=== PATIENT | female | born 1945 | race Caucasian/White ===

== ENCOUNTER 2017-03-03 11:32 | Inpatient (IN) | payer MEDICARE, MEDICAID ==
[~2017-03-03] VITALS: Ht 160 cm; Wt 58.8 kg
[2017-03-03] VITALS (7 sets, daily range): BP systolic 111–134; BP diastolic 80–92; PULSE 84–105; RESP 14–26; O2SAT 87–94
[~2017-03-03 11:32] MED LIST: ALBU8.5H4 IH; BECL8.7A6 IH; FERR-83 PO; FUR20 PO; HYDR-3825 PO; IPRA3AMP IH; OLAN20TA3 PO; OLAN5TAB PO; OMEP-113 PO; OXCA300T2 PO; POTA10CA42 PO; PRAM0.5T3 PO; RNT300T PO; TEMA7.5C14 PO; TIOT18CA3 IH; TOPI-59 PO; ZOV800 PO
--- NOTE | 2017-03-03 12:15 | ED.REPORT ---
HPI-Dyspnea / Wheezing Date of Service Mar 03, 2017 ED Provider: Yumiko Raghavendra Patient is a 71 year old female with a hx of COPD and hyperlipidemia who presents to the ED after being referred by Dr. Talavera complaining of increasing SOB. She is unable to breathe without her Bipap machine and still feels short of breath with it. Associated symptoms include rib pain, chest pain, back pain, and diaphoresis. She denies fever, vomiting, or any other symptoms. She has been on Bipap since the 18 of February and is supposed to be on it as needed. Her pulmonary doctor recently titrated off of oral steroids to inhaled steroids. Has not having fevers but has been having night sweats recently. Presented to her primary care doctor's office tachypneic, dyspneic, tachycardic with an 88% saturation. Has had a nonproductive cough. Nursing Notes Stated Complaint: SHORT OF BREATH Chief Complaint: Respiratory Distress Nursing Notes Reviewed: Yes Allergies: Coded Allergies: Penicillins (Verified Allergy, Unknown, FLUSH HOT & reddened skin, ) Scheduled Beclomethasone Dipropionate (Qvar) 8.7 Gm Aer.w.adap 2 PUFFS IH BID Ferrous Sulfate (Ferrous Sulfate) 325 Mg Tablet 325 MG PO DAILY Furosemide (Furosemide) 20 Mg Tab 40 MG PO DAILY Olanzapine (Olanzapine) 5 Mg Tablet 5 MG PO HS every am and at bedtime Olanzapine (Zyprexa) 20 Mg Tablet 20 MG PO HS Omeprazole Magnesium (Omeprazole) 20 Mg Capsule.dr 20 MG PO BID Oxcarbazepine (Oxcarbazepine) 300 Mg Tablet 600 MG PO QAM Oxcarbazepine (Oxcarbazepine) 300 Mg Tablet 900 MG PO HS Potassium Chloride (Potassium Chloride) 10 Meq Capsule.er 10 MEQ PO NOON TAKE WITH FOOD Ranitidine (Zantac) 300 Mg Tab 300 MG PO HS Temazepam (Temazepam) 7.5 Mg Capsule 7.5 MG PO HS Tiotropium [place] (Spiriva) 18 Mcg Cap.w.dev 18 MCG IH DAILY Topiramate (Topiramate) 25 Mg Tablet 25 MG PO DAILY Scheduled PRN Acyclovir (Acyclovir) 800 Mg Tab 800 MG PO BID PRN PRN outbreak Albuterol HFA (Albuterol HFA) 8.5 Gm Hfa.aer.ad 2 PUFF IH QID PRN PRN For Shortness of Breath Hydrocodone-Acetaminophen 7.5-325 mg (Hydrocodone-Acetaminophen 7.5-325 mg) 1 Each Tablet 1-1.5 EACH PO Q6H PRN PRN For Pain Up to 4 in 24 hours Ipratropium/Albuterol Sulfate (Iprat-Albut 0.5-3(2.5) mg/3 mL Inhalant Soln) 3 Ml Ampul.neb 1 NEB IH Q6 PRN PRN For Shortness of Breath Pramipexole Dihydrochloride (Mirapex) 0.5 Mg Tablet 0.25-0.5 MG PO HS PRN PRN For Restlessness General Time Seen by MD: 12:14 Chief Complaint Shortness of breath Hx Obtained From: Patient, Primary care provider Arrived By: Walk-in Sudden in Onset?: No Onset Occurred: Onset unknown Symptom Duration: Since onset Recent Healthcare: Recent doctor visit Similar Sx Previous: Yes Past Medical History Past Medical History Per old reports 1. Chronic hypoxic hypercapnic respiratory failure, on 2 L/minute continuous home oxygen. 2. Chronic obstructive pulmonary disease. 3. Bipolar disorder. 4. Chronic pain, on narcotic analgesics. 5. Nicotine dependence, active with 1/2 pack cigarette smoking daily. 6. Osteoarthritis. 7. Restless leg syndrome. 8. Gastroesophageal reflux disease. 9. Dysphagia with significant tracheobronchial aspiration by barium swallow on August 31, 2014. 10. Hyperlipidemia 11. Depression 12. MAURICE 13. Degenerative arthritis - spine 14. pseudophakia 15. 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 Left knee arthroplasty due to lateral meniscal tear. 2. Decompressive laminectomy of C3-C6. 3. Left ankle surgery. 4. Hysterectomy. 5. Facial surgery in the remote past due to an accident. Reports: Hysterectomy Smoking History Former Smoker Social History Lives with demented Alcohol Use: Denies alcohol use Drug Use: THC Ambulatory Status Independent Review of Systems Review of Systems Note: +rib pain Constitutional: Denies: Fever Respiratory: Reports: Shortness of breath Cardiovascular: Reports: Chest pain Musculoskeletal: Reports: Back pain Skin: Reports Diaphoresis Complete sys rev & neg: except as marked. GI: Denies: Vomiting Physical Exam Initial Vital Signs Vital Signs (First) Date Time Temp Pulse Resp B/P Pulse Ox O2 Delivery O2 Flow Rate FiO2 03/03/17 11:37 36.4 105 20 129/81 92 BiPAP 2 Initial VS: Reviewed, Vital signs normal Head / Eyes: Atraumatic, Normocephalic Abdomen / GI: Soft, Non-tender Skin: Warm, Dry Neurologic: Alert, Oriented, Nonfocal Psychiatric: Mood/affect normal, Behavior normal, Normal thought content General/Constitutional: Awake, Alert Distress / Hydration: Positive: Distress moderate Neck: Full range of motion Respiratory / Chest: No wheezing lungs clear anteriorly, equal breath sounds, poor air movement On Bipap Cardiovascular: Heart rate NL, Regular rhythm, Heart sounds NL, No gallop, No murmurs, No rubs Interpretation & Diagnostics Lab Results Interpretation Result Diagram: 03/03/17 1200 03/03/17 1200 Test 03/03/17 12:00 03/03/17 13:09 White Blood Count 9.3th/mm3 (3.8-10.1) Red Blood Count 4.04mil/mm3 (3.90-5.20) Hemoglobin 12.7g/dL (12.0-15.6) Hematocrit 37.7% (35.0-46.0) Mean Corpuscular Volume 93.3fL (81-100) Mean Corpuscular Hemoglobin 31.4pg (27.0-35.0) Mean Corpuscular Hemoglobin Concent 33.7% (32.0-37.0) Red Cell Distribution Width 13.5% (12.3-15.4) Platelet Count 341bil/L (150-400) Neutrophils (%) (Auto) 72.4% (40-74) Lymphocytes (%) (Auto) 18.4% (14-46) Monocytes (%) (Auto) 7.5% (4-12) Eosinophils (%) (Auto) 1.2% (0-5) Basophils (%) (Auto) 0.2% (0-3) Sodium Level 135mEq/L (134-144) Potassium Level 4.6mEq/L (3.5-5.2) Chloride Level 97mEq/L (97-108) Carbon Dioxide Level 21mmol/L (18-29) Blood Urea Nitrogen 13mg/dL (8-27) Creatinine 0.40mg/dL (0.57-1.00) Estimat Glomerular Filtration Rate 225mL/min (>59) Glucose Level 109mg/dL (60-99) Calcium Level 10.0mg/dL (8.5-10.1) Magnesium Level 1.9mg/dL (1.6-2.6) Total Bilirubin 0.3mg/dL (0.0-1.2) Aspartate Amino Transf (AST/SGOT) 30U/L (0-50) Alanine Aminotransferase (ALT/SGPT) 23U/L (0-32) Alkaline Phosphatase 100U/L (25-165) Troponin T 0.010ug/L (0.0-0.011) Pro-B-Type Natriuretic Peptide < 0.010pg/mL (0-301) Total Protein 8.6g/dL (6.4-8.4) Albumin 4.3g/dL (3.4-5.0) D-Dimer 1.11mg/L FEU (<0.50) ECG Interpretation ECG Interpretation: Sinus rate 95 L axis deviation No actute Time: 13:16 Interpreted by: ED physician ABG Interpretation ABG Interpretation: ABG on trilogy with supplemental O2 chronic resp acidosis, she is chronically hypercapneic and not correcting on trilogy pH 7.337 pCO2 70 pO2 233 cHCO3- 37 cBase 1.1 Exam Performed by: Allied health pract Exam Interpreted by: ED physician X-Ray Chest Interpretation Chest Xray Interpretation: IMPRESSION: 1. Pulmonary emphysema. 2. Apparent vascular shunting to the upper lobes could reflect elevated pulmonary venous pressure but indeterminate. 3. Scar or atelectasis along the left major fissure is unchanged. 4. Increased density at the left base medially could represent a new area of pneumonia. Dictated by: Jeffry Xiong M.D. on 03/03/2017 at 13:15 Approved by: Jeffry Xiong M.D. on 03/03/2017 at 13:20 View: Portable, 1 view Interpretation / Wet Read by: Interpret - Radiologist Re-Eval/Medical Decision Med Decision/Clinical Course 71-year-old female with advanced COPD, increasing dyspnea and infiltrate on her chest x-ray. Given nebulized bronchodilators, prednisone 40 mg and Levaquin 750 mg IV. Elevated d-dimer noted, CT angiogram has been done, my initial review did not show pulmonary and was not, formal interpretation is pending. She will be admitted to hospitalist service. Consultation : Referral / Consult Name: Ana M Bob DO Consulted With: Hospitalist Hook Up: Accepts admit Note: Admit to night hospitalist. Discharge & Departure Impression: Primary Impression: Pneumonia Pneumonia type: due to unspecified organism Laterality: left Lung location : lower lobe of lung Qualified Code: J18.1 - Lobar pneumonia, unspecified organism Additional Impression: COPD exacerbation Disposition: ADMITTED TO HOSPITAL Discharge Condition All VS Reviewed: Yes Condition: Stable Referrals: Sandra Talavera MD (PCP) Scribe Attestation Portions of this note were transcribed by Kristal Mcgee. I, Dr. Calderon personally performed the history, physical exam and medical decision-making; I reviewed and confirmed the accuracy of the information in the transcribed note. Signed by: Kristal Mcgee 03/03/2017, 1503 copies to: Sandra Talavera MD, Donald L MD Mar 03, 2017 12:14 KRISTAL MCGEE Mar 03, 2017 12:35
[2017-03-03 12:52] LABS: BASOPHILS % (AUTO) 0.2 % (0-3); EOSINOPHILS % (AUTO) 1.2 % (0-5); MONOCYTES % (AUTO) 7.5 % (4-12); Mean Corpuscular Hemoglobin 31.4 pg (27.0-35.0); Mean Corpuscular Volume 93.3 fL (81-100); NEUTROPHILS % (AUTO) 72.4 % (40-74); Platelet Count 341 bil/L (150-400)
--- NOTE | 2017-03-03 12:56 | ABG ---
DateTimeAnalyzed 12:48:02 -_ pH ____7.386 - 7.350 7.450 pCO2 ___43.9__ -mmHg 35.0 45.0 pO2 ___74.8__ -mmHg 69.0 116 HCO3- ___26.3__ -mmol/L 22.0 26.0 ABE ____1.1__ -mmol/L tHb ___11.7__ -g/dL O2Hb ___94.2__ -% COHb ____1.4__ -% 1.5 MetHb ____0.2__ -% sO2 ___95.7__ -% FIO2 ___28.0__ -% Drawn By rs - Date/Time Notified____ 12:55:00 -_ Notified By rs - Notified Whom slack, don - K+ ____4.1__ -mmol/L tO2 ___15.6__ -Vol%
[2017-03-03 13:15] LABS: Magnesium 1.9 mg/dL (1.6-2.6)
--- NOTE | 2017-03-03 13:22 | DRSVH ---
PROCEDURE: X-RAY CHEST ONE VIEW, PORTABLE ([id number]) INDICATIONS: dyspnea TECHNIQUE: One view of the chest was acquired. COMPARISON: 01/09/2017 FINDINGS: Surgical changes and devices: None. Lungs and pleura: No pleural effusions or pneumothorax. Pulmonary hyperexpansion as before. [place] ear radiodensity in the left midlung field representing scar or thickening along the fissure, unchang ed. Upper lobe pulmonary vessels are increased. There is mild increased opacity above the left hemidi aphragm partially obscuring the cardiac apex. Mediastinum: Mediastinal contours appear normal. Heart size is normal. Bones and chest wall: No suspicious bony lesions. Overlying soft tissues appear unremarkable. IMPRESSION: 1. Pulmonary emphysema. 2. Apparent vascular shunting to the upper lobes could reflect elevated pulmonary venous pressure but indeterminate. 3. Scar or atelectasis along the left major fissure is unchanged. 4. Increased density at the left base medially could represent a new area of pneumonia. Dictated by: Jeffry Xiong M.D. on 03/03/2017 at 13:15 Approved by: Jeffry Xiong M.D. on 03/03/2017 at 13:20
[2017-03-03] MEDS ORDERED: levoFLOXacin Inj 750 MG in IV Premix 1 EACH IV ONE (17:30)
--- NOTE | 2017-03-03 17:30 | DRSVH ---
PROCEDURE: CT ANGIO CHEST PULMONARY EMBOLISM ([id number]) INDICATIONS: increasing dyspnea elevted dimer TECHNIQUE: After the administration of intravenous contrast, 2 mm thick sections acquired from the pulmonary api jose ramon to the posterior costophrenic angles. 3-dimensional maximum intensity projection (MIP) coronal a nd sagittal reformats were then acquired through the thorax. For radiation dose reduction, the follo wing was used: automated exposure control, adjustment of mA and/or kV according to patient size. COMPARISON: [facility], CT, CT ANGIO CHEST PE, 02/10/2017, 8:48. [facility], CT, CHEST ANGIO-PE, 12/02/2013, 15:45. [facility], CT, CHEST ANGIO-PE, 07/03/2011, 20:24 . FINDINGS: Image quality: Excellent. Pulmonary arteries: Pulmonary arteries are normal in size, and demonstrate no intraluminal filling d efects to suggest central pulmonary embolism. Lungs and pleura: Platelike subpleural density within the lateral aspect of the left upper lobe is pr esent, extending anteroinferiorly along the major fissure. Moderate emphysema with apical predominanc e is present. 5 mm diameter spiculated nodule within the right upper lobe anteriorly, which was not s een on the prior examination. No change in 6 mm diameter nodule within the left lower lobe anteriorly . No pleural effusions or pneumothorax. Central and peripheral airways are patent. Mediastinum: Heart size is normal, without pericardial effusion. There is calcification of the coron bryan vasculature. No mediastinal or hilar adenopathy. Thoracic aorta is normal in caliber and enhance ment. Esophagus is normal in caliber, without hiatal hernia. Bones and chest wall: No suspicious bony lesions. Ribs and thoracic spine appear intact throughout. Thyroid gland is within normal limits. No axillary or supraclavicular adenopathy. Abdomen: Visualized upper abdominal solid organs appear normal in the early arterial phase of enhanc ement. IMPRESSION: 1. No acute process. No pulmonary embolus. 2. Coronary artery disease. 3. Emphysema. 4. Bilateral lung nodules as described above; followup is recommended as below. 5. Presumed subpleural scarring within the left upper lobe laterally. Fleischner Society criteria for SOLID lung nodule followup. Nodule size (mm)Low-risk patientHigh-risk patient<6 (single or multiple)No routine followup.Optional CT at 12 months. 6-8 (single or multiple)CT at 6-12 months, then optional CT at 18-24 mo.CT at 6-12 m onths, then CT at 18-24 months. >8 (single)CT, PET-CT, or biopsy at 3 months. Same as for low-risk p ts. >8 (multiple)CT at 3-6 months, then optional CT at 18-24 mo.CT at 3-6 months, then CT at 18-24 m onths. Recommendations do not apply to lung cancer screening, patients with immunosuppression, or pa tients with known primary cancer. Dictated by: Dillon Olea M.D. on 03/03/2017 at 17:24 Approved by: Dillon Olea M.D. on 03/03/2017 at 17:28
[2017-03-03] MEDS ORDERED: predniSONE 20 mg Tablet PO ONE (17:35)
[2017-03-03] MEDS ORDERED: HYDROcodone-APAP 5-325 mg Tablet PO ONE (18:00)
[2017-03-03] MEDS ORDERED: 0.9% Sodium Chloride 1,000 ML IV ONE (18:10)
[2017-03-03] MEDS ORDERED: Alum-Mag Hydrox-Simeth 30 mL Suspension PO PRN (19:25)
[2017-03-03] MEDS ORDERED: Ondansetron 2 mg/mL 2 mL Inj IVPUSH PRN (19:25)
[2017-03-03] MEDS ORDERED: Polyethylene Glycol (PEG) 17 Gm Powder PO PRN (19:25)
--- NOTE | 2017-03-03 21:16 | PCM.HPMED ---
Subjective Date of Service Mar 03, 2017 Primary Provider: Admitting Physician: Alec Velasquez MD Primary Care Physician: Sandra Talavera MD Attending Physician: Alec Velasquez MD Chief Complaint: Shortness of breath History of Present Illness: Sandra Briggs is a 71-year-old woman with past medical history significant for COPD and is dependent on Trilogy, bipolar, MAURICE who presented to the [facility] emergency department today due to worsening shortness of breath. Patient initially contacted her primary care physician who directed her to the emergency department. Patient noted that she has been using her Trilogy [id number] and still feels quite short of breath with it. Patient is also complaining of chest pain and diaphoresis. Patient stated that her ribs and her abdomen and back started hurting since discharge using Trilogy although the pressure is making her tired. She is also completely dependent on the Trilogy since she got it and has not really been able to eat or drink that she is not able to tolerate really any time off of the BiPAP. She denies increase in production of sputum. She denies any sick contacts. Patient states that she has been having intermittent fevers in the last couple of hours. She also mentions several months worth of abdominal pain. She denies any constipation. In the emergency department her vital signs were notable for a pulse of 105 and an O2 saturation of 92% on BiPAP. ABG was performed which revealed patient to be in mild respiratory acidosis. A CT angiogram of chest was performed as well to rule out pulmonary embolism and it was negative. Patient was given nebulized bronchodilators, 40 mg of prednisone and 750 mg of IV Levaquin. Patient states that she does not feel any improvement from any interventions and still remains quite short of breath. She states that her dyspnea has really not changed at all becoming quite fatigued. Review of Systems: A comprehensive review of systems was conducted with the patient and found to be negative except as above in the History of Present Illness. Allergies Coded Allergies: Penicillins (Verified Allergy, Unknown, FLUSH HOT & reddened skin, ) Home Medications Sandra Briggs [id number] 1945 02/12/2017 01:30 PM 08/23 Start Date Medication Directions Stop Date 07/11/2016 acyclovir 800 mg tablet TAKE ONE TABLET BY MOUTH TWICE A DAY 201701/18/2016 Aerochamber MV spacer use with albuterol and azmanex inhalers 10/28/2016 ALBUTER/IPRATROP 2.5-0.5MG/3ML ... INHALANT INHALE CONTENTS OF 1 VIAL VIA NEBULIZER 4 TIMES DAILY 04/02/2016 albuterol sulfate HFA 90 mcg/actuation aerosol inhaler INHALE 2 PUFFS BY MOUTH 4 to 6 TIMES DAILY FOR ASTHMA WHEEZING 06/19/2016 Asmanex Twisthaler 220 mcg (60 doses) breath activated inhale 1 puff by inhalation route every 2 days 02/09/2017 Breo Ellipta 200 mcg-25 mcg/dose powder for inhalation inhale 1 puff by inhalation route every day at the same time each day 11/28/2016 bupropion HCl 75 mg tablet take 1 tablet by ORAL route 2 times every day after one week increase to twice daily 01/08/2017 CETIRIZINE TAB 10MG 300 NSTR@ 10 MG TABLET TAKE ONE TABLET BY MOUTH ONCE DAILY 08/02/2015 Ensure oral liquid One Ensure like product twice daily for underweight status 09/05/2016 Flovent HFA 220 mcg/actuation aerosol inhaler inhale 2 puff by inhalation route 2 times every day after albuterol with spacer 08/05/2016 FUROSEMIDE 20MG TABLET* TAKE 1-2 TABLETS BY MOUTH ONCE DAILY 01/21/2017 hydrocodone 7.5 mg-acetaminophen 325 mg tablet take 1 tablet by oral route every 6 hours as needed for pain. May take 1 extra tablet 4 days a month 03/01/2017 02/19/2017 hydrocodone 7.5 mg-acetaminophen 325 mg tablet take 1 tablet by oral route every 6 hours as needed for pain. May take 1 extra tablet 4 days a month 03/27/2017 07/14/2016 iron 325 mg (65 mg iron) tablet TAKE ONE TABLET BY MOUTH DAILY 11/18/2016 lorazepam 0.5 mg tablet take 0.5 - 1 tablet by oral route 2 times every day as needed for anxiety, may take at same time as temazepam 07/29/2013 melatonin 3 mg tablet One tablet at night 05/05/2016 METHOCARBAMOL 500MG TABLET TAKE ONE TABLET BY MOUTH 4 TIMES DAILY NEEDED FOR MUSCLE SPASM 04/01/2016 naproxen 250 mg tablet take 1 tablet by oral route 2 times every day as needed for joint pain 02/12/2017 NYSTATIN SUSP 100,000UNITS/ML 969869 POWDER/SUSPENSION TAKE 1 TEASPOONFUL BY MOUTH 4 TIMES DAILY 01/08/2017 OMEPRAZOLE 20MG CAPSULE TAKE ONE CAPSULE BY MOUTH TWICE A DAY 09/03/2016 oxcarbazepine 300 mg tablet TAKE TWO TABLETS BY MOUTH EVERY MORNING AND 4 TABS AT BEDTIME 08/19/2013 Oxygen 3 liter Nasal Use 3 liters by Nasal canulla with flair of lung disease at rest and with exertion. May decrease to 2 liters when flair resolved. 06/30/2016 PEG 3350 PWDR FOR SOLN MG POWDER/SUSPENSION USE 1 CAPFUL (17GM) MIXED WITH 8 OZ WATER OR JUICE ONCE DAILY FOR 3 DAYS THEN NEEDED 01/14/2017 POTASSIUM CL CAP 10MEQ ER CAPSULE TAKE ONE CAPSULE BY MOUTH ONCE DAILY WITH FOOD 02/11/2017 prednisone 20 mg tablet take 0.5 tablet by oral route every morning with breakfast for 2 weeks and then stop 08/05/2016 RANITIDINE 300MG TABLET TAKE ONE TABLET BY MOUTH DAILY AT BEDTIME 04/13/2015 selenium sulfide 2.5 % topical suspension Shampoo by topical route 2 times every week to the affected area(s), lather, leave for 10 minutes, then rinse off with water. 06/19/2016 Spiriva with HandiHaler 18 mcg and inhalation capsules INHALE 1 CAPSULE DAILY EVERY DAY 12/24/2016 temazepam 15 mg capsule take 1 capsule (15MG) by oral route every day at bedtime as needed, may repeat after 3 hours if needed. 08/05/2016 TOPIRAMATE TAB 25MG TABLET TAKE ONE TABLET BY MOUTH TWICE A DAY 12/03/2016 ZYPREXA 20MG TABLET TAKE ONE TABLET BY MOUTH ONCE DAILY AT BEDTIME 11/28/2016 Zyprexa 5 mg tablet take 1 tablet by oral route every morning continue 20mg tablet at night PMH Muscle spasm Arthritis Obstructive sleep apnea Degenerative arthritis of spine Pseudophakia Hypoxia Insomnia Spondylosis without myelopathy Astigmatism Venous retinal branch occlusion Hyperlipidemia COPD (chronic obstructive pulmonary disease) Bipolar 1 disorder Restless leg syndrome Chronic bronchitis Hearing loss in left ear Surgical History Arthroscopic subacromial decompression Hysterectomy Facial surgery Ankle surgery Family History Patient has 3 children all of whom have mental illness. Social History Hx Alcohol Use: No Hx Substance Use: Yes ("marijuana brownies", QUIT) Hx Tobacco Use: Yes (8 CIGARETTES A DAY) Smoking Status: Former Smoker (patient smoked for 50 years) Additional Information Patient's last December and she has lived alone since then. She has a biotechnologist that comes to visit her twice a week for 2 hours to clean. Otherwise she cares for herself. Exam Vital Signs Vital Sign - Last Date Time Temp Pulse Resp B/P Pulse Ox O2 Delivery O2 Flow Rate FiO2 03/03/17 15:14 92 26 111/92 94 BiPAP 2 03/03/17 11:37 36.4 Exam General: Frail elderly woman in a hospital bed. Does not appear in acute distress. Able to communicate through BiPAP mask. HEENT: Normocephalic, atraumatic. External ears without defect. Pupils equal, round, and reactive to light and accommodation. Anicteric sclerae, moist conjunctivae, and no lid lag. BiPAP mask on face. Neck: Supple with full range of motion. No jugular venous distension. No lymphadenopathy or thyromegaly. Cardiovascular: Regular rate and rhythm with no murmurs, rubs, or gallops appreciated Pulmonary: Diffuse crackles throughout. Increased work of breathing observed. Abdomen: Bowel tones present. Soft, mildly tender diffusely, distended. No hepatosplenomegaly or masses appreciated. Extremities: No clubbing, cyanosis, edema, or lymphadenopathy appreciated. Skin: Normal temperature, turgor, and texture; no rash, ulcers, or subcutaneous nodules appreciated. Neurological: Cranial nerves grossly intact. Normal muscle strength, tone, and bulk. Reflexes, coordination, and sensory function within normal limits. No known gait impairment. Psychiatric: Normal mood and affect. Alert and oriented to person, place, and time. Lab and Diagnostics Result Diagram: 03/03/17 1200 03/03/17 1200 X-Rays, CTs and MRIs X-RAY CHEST ONE VIEW, PORTABLE IMPRESSION: 1. Pulmonary emphysema. 2. Apparent vascular shunting to the upper lobes could reflect elevated pulmonary venous pressure but indeterminate. 3. Scar or atelectasis along the left major fissure is unchanged. 4. Increased density at the left base medially could represent a new area of pneumonia Dictated by: Jeffry Xiong M.D. on 03/03/2017 at 13:15 CT ANGIO CHEST PULMONARY EMBOLISM IMPRESSION: 1. No acute process. No pulmonary embolus. 2. Coronary artery disease. 3. Emphysema. 4. Bilateral lung nodules as described above; followup is recommended as below. 5. Presumed subpleural scarring within the left upper lobe laterally. Fleischner Society criteria for SOLID lung nodule followup. Nodule size (mm)Low-risk patientHigh-risk patient<6 (single or multiple)No routine followup.Optional CT at 12 months. 6-8 (single or multiple)CT at 6-12 months, then optional CT at 18-24 mo.CT at 6-12 months, then CT at 18-24 months. >8 (single)CT, PET-CT, or biopsy at 3 months. Same as for low-risk pts. >8 (multiple)CT at 3-6 months, then optional CT at 18-24 mo.CT at 3-6 months, then CT at 18-24 months. Recommendations do not apply to lung cancer screening, patients with immunosuppression, or patients with known primary cancer. Dictated by: Dillon Olea M.D. on 03/03/2017 at 17:24 Assessment & Plan Sandra Briggs is a 71-year-old woman with past medical history significant for COPD and is dependent on Trilogy, bipolar, MAURICE who presented to the [facility] emergency department today due to worsening shortness of breath. Acute on chronic hypoxemic hypercarbic respiratory failure secondary to severe COPD possible exacerbation, present on admission, active -Patient already has severe COPD at baseline. Since starring to use Trilogy the patient has been entirely dependent on it not really been able to eat or drink -We will treat for presumed COPD exacerbation although this really seems like the steady decline of end-stage COPD -Continue Trilogy -We will continue with empiric antibiotics. Will continue steroids. Will continue with DuoNeb, albuterol, steroid inhaler. -Respiratory viral PCR -Urine Legionella antigen, strep antigen -Blood cultures, sputum cultures -Consider palliative care consultation tomorrow morning Chronic issues, present on admission, stable: Bipolar disorder -Continue home medications Chronic pain -Continue home pain medications MAURICE -As above CODE STATUS: DNR/DNI Patient is admitted under inpatient status with expected length of stay greater than 2 midnights due to severity of presenting symptoms, risk of adverse event, and complexity of treatment plan. VTE Prophylaxis: Sub-Q Heparin (Unfractionated) Resuscitation Status: DNR/DNI:Do Not Resuscitate/Intubate Attending Statement The patient was seen and examined together with Dr. Bob on 03/03 and I agree with the history, exam and plan as outlined in the note above. Ana M Bob DO Mar 03, 2017 20:23 Alec Velasquez MD Mar 03, 2017 21:21
[2017-03-03] MEDS ORDERED: Albuterol 2.5 mg/3 mL Inhalation Solution NEB PRN (21:20)
[2017-03-03] MEDS: Albuterol-Ipratropium 3 mL Inhalation Solution NEB SCH (21:27)
[2017-03-03] MEDS: 0.9% Sodium Chloride 1,000 ML IV SCH (22:29)
[2017-03-03 23:12] LABS: APPEARANCE,URINE CLEAR (CLEAR,HAZY); COLOR,URINE YELLOW (YELLOW); OCCULT BLOOD,URINE TRACE (NEGATIVE); PH,URINE 6.4 (5.0-8.0); UROBILINOGEN,URINE NORMAL (NORMAL)
--- NOTE | 2017-03-03 23:30 | NUR ---
admit note/med rec pt admitted to room 3031 from ED around 2114 for dyspnea, COPD exacerbation and PNA. Pt is A&Ox4; able to ambulate in the room with moderate SOB. unable to finish a sentence w/o taking a breath. RR 20-24, desats to mid 80s on continuous use of Bipap/trilogy with 2L O2 bleed; resolves when resting in bed; SpO2 between 90%-94%. IVF infusing. Pt is oriented to room and plan of care; she verbalized understanding. Pt unable to recall her medications and dosages. will acquire a med list from PCP in AM. Addendum: 03/04/17 at 0603 by LITA BENSON RN continues to desaturate and have dyspnea with activity; resolved when resting in bed. Hydrocodone/APAP given per pt's request for generalized pain with good relief. pt slept most of the night. able to make needs known.
[2017-03-04] VITALS (11 sets, daily range): BP systolic 125–153; BP diastolic 74–92; PULSE 90–115; RESP 13–28; O2SAT 92–95
[2017-03-04] MEDS: HYDROcodone-APAP 7.5-325 mg Tablet PO PRN ×2 (00:35→08:59)
[2017-03-04] MEDS ORDERED: predniSONE 20 mg Tablet PO SCH (08:30)
[2017-03-04] MEDS: Albuterol-Ipratropium 3 mL Inhalation Solution NEB SCH ×4 (08:57→21:16)
[2017-03-04] MEDS: 0.9% Sodium Chloride 1,000 ML IV SCH (09:01)
--- NOTE | 2017-03-04 11:08 | DRSVH ---
PROCEDURE: X-RAY KUB ([id number]) INDICATIONS: abdOMINAL distension, pain TECHNIQUE: One view of the abdomen acquired. COMPARISON: None. FINDINGS: Surgical changes and devices: None. Bowel: Diffuse gas-filled bowel dilatation including the stomach.. Soft tissues: No suspicious abdominal calcifications. Visualized solid organ contours appear normal in size. Vicarious excretion of contrast in the bladder related to a previous chest CT. Bones: Degenerative changes throughout the spine. IMPRESSION: Gas-filled dilatation of multiple loops of small bowel air present an adynamic ileus. Dictated by: Srinivasa Rm M.D. on 03/04/2017 at 9:43 Approved by: Srinivasa Rm M.D. on 03/04/2017 at 9:46
[2017-03-04] MEDS ORDERED: LORA-302 PO (14:09)
[2017-03-04] MEDS ORDERED: OMEP20CA11 PO (14:09)
[2017-03-04] MEDS ORDERED: CETI10CA PO (14:09)
[2017-03-04] MEDS ORDERED: [UNRECOGNIZED DRUG - CODE] PO (14:09)
[2017-03-04] MEDS ORDERED: BUPR75TA10 PO (14:09)
[2017-03-04] MEDS ORDERED: NYST1000 PO (14:09)
[2017-03-04] MEDS ORDERED: ROB500 PO (14:09)
[2017-03-04] MEDS ORDERED: TIOT18CA3 IH (14:14)
[2017-03-04] MEDS ORDERED: POLY510P31 PO (14:14)
[2017-03-04] MEDS ORDERED: RANI300T4 PO (14:14)
[2017-03-04] MEDS ORDERED: RES15 PO (14:17)
[2017-03-04] MEDS ORDERED: SYMINH INH (14:17)
[2017-03-04] MEDS ORDERED: OLAN20TA3 PO (14:19)
[2017-03-04] MEDS ORDERED: OLAN5TAB4 PO ×2 (14:19)
[2017-03-04] MEDS ORDERED: FLUT12AE10 IH (14:59)
[2017-03-04] MEDS ORDERED: FLUT1BLS INH (15:07)
[2017-03-04] MEDS ORDERED: Albuterol-Ipratropium 3 mL Inhalation Solution NEB PRN (15:20)
[2017-03-04] MEDS ORDERED: HYDROcodone-APAP 7.5-325 mg Tablet PO PRN (15:20)
[2017-03-04] MEDS ORDERED: Budesonide-Formot 160-4.5 mCg 6.9 Gm Inhaler INHALATION SCH (15:20)
--- NOTE | 2017-03-04 16:54 | NUR ---
Dyspnea Patient sob this a.m. @ rest, unable to finish a sentence or eat 25% of meal d/t sob. made aware, request for MS, 1-2mg ordered, 1mg admin w/ little effect, stated it helped w/ pain but not sob, later in afternoon patient c/o of sob, MS 2mg admin w/ a good result, still becomes sob w/ mild activity such as sitting at the edge of the bed, patient states it was effective for sob at rest.
--- NOTE | 2017-03-04 17:34 | PCM.PNMED ---
Subjective Date of Service Mar 04, 2017 Subjective Continues to have dyspnea. Exam Vital Signs Vital Sign - Last Date Time Temp Pulse Resp B/P Pulse Ox O2 Delivery O2 Flow Rate FiO2 03/04/17 17:15 95 28 92 Nasal Cannula 2.00 03/04/17 16:41 36.7 153/88 Intake and Output 03/03/17 03/03/17 03/04/17 Cumulative From/Thru 15:00 23:00 07:00 03/03/17 11:37 - 03/04/17 06:25 Intake Total 200 ml 583 ml 783 ml Output Total 900 ml 900 ml Balance 200 ml -317 ml -117 ml Intake Oral 100 ml 100 ml IV Total 200 ml 483 ml 683 ml Output Urine Total 900 ml 900 ml # Bowel Movements 2 2 Exam General: Frail elderly woman in a hospital bed. Does not appear in acute distress. Able to communicate through BiPAP mask. HEENT: Normocephalic, atraumatic. External ears without defect. Pupils equal, round, and reactive to light and accommodation. Anicteric sclerae, moist conjunctivae, and no lid lag. BiPAP mask on face. Neck: Supple with full range of motion. No jugular venous distension. No lymphadenopathy or thyromegaly. Cardiovascular: Regular rate and rhythm with no murmurs, rubs, or gallops appreciated Pulmonary: Diffuse crackles throughout. Increased work of breathing observed. Abdomen: Bowel tones present. Soft, mildly tender diffusely, distended. No hepatosplenomegaly or masses appreciated. Extremities: No clubbing, cyanosis, edema, or lymphadenopathy appreciated. Skin: Normal temperature, turgor, and texture; no rash, ulcers, or subcutaneous nodules appreciated. Neurological: Cranial nerves grossly intact. Normal muscle strength, tone, and bulk. Reflexes, coordination, and sensory function within normal limits. No known gait impairment. Psychiatric: Normal mood and affect. Alert and oriented to person, place, and time. IVs and Medications Medications Reviewed: Medications were reviewed in detail Lab and Diagnostics Result Diagram: 03/03/17 1200 03/03/17 1200 X-Rays, CTs and MRIs X-RAY CHEST ONE VIEW, PORTABLE IMPRESSION: 1. Pulmonary emphysema. 2. Apparent vascular shunting to the upper lobes could reflect elevated pulmonary venous pressure but indeterminate. 3. Scar or atelectasis along the left major fissure is unchanged. 4. Increased density at the left base medially could represent a new area of pneumonia Dictated by: eJffry Xiong M.D. on 03/03/2017 at 13:15 CT ANGIO CHEST PULMONARY EMBOLISM IMPRESSION: 1. No acute process. No pulmonary embolus. 2. Coronary artery disease. 3. Emphysema. 4. Bilateral lung nodules as described above; followup is recommended as below. 5. Presumed subpleural scarring within the left upper lobe laterally. Fleischner Society criteria for SOLID lung nodule followup. Nodule size (mm)Low-risk patientHigh-risk patient<6 (single or multiple)No routine followup.Optional CT at 12 months. 6-8 (single or multiple)CT at 6-12 months, then optional CT at 18-24 mo.CT at 6-12 months, then CT at 18-24 months. >8 (single)CT, PET-CT, or biopsy at 3 months. Same as for low-risk pts. >8 (multiple)CT at 3-6 months, then optional CT at 18-24 mo.CT at 3-6 months, then CT at 18-24 months. Recommendations do not apply to lung cancer screening, patients with immunosuppression, or patients with known primary cancer. Dictated by: Dillon Olea M.D. on 03/03/2017 at 17:24 Assessment & Plan Sandra Briggs is a 71-year-old woman with past medical history significant for COPD and is dependent on Trilogy, bipolar, MAURICE who presented to the [facility] emergency department today due to worsening shortness of breath. #Acute on chronic hypoxemic hypercarbic respiratory failure secondary to severe COPD possible exacerbation, present on admission, active -Patient already has severe COPD at baseline. Since starring to use Trilogy the patient has been entirely dependent on it not really been able to eat or drink -We will treat for presumed COPD exacerbation although this really seems like the steady decline of end-stage COPD -Continue Trilogy -We will continue with empiric antibiotics/Levaquin. Will continue steroids. Switch prednisone to Solu-Medrol 40 IV tid - Will continue with DuoNeb, albuterol, steroid inhaler. -Respiratory viral PCR -Urine Legionella antigen, strep antigen negative -Blood cultures NGTD, sputum cultures - palliative care consultation tomorrow -CTA negative for PE -Patient has basal crackles. Discontinue fluids. Switched home Lasix to IV 40 mg daily. Echo requested -Patient has fairly extensive polypharmacy on her medication list. Last hospitalization to this hospital is 2014. Medication list has expanded markedly . Mainly outpatient med adjustments. Discussed with pharmacist ,I will try to contact PCP and clarify medication list and rationale Chronic issues, present on admission, stable: #Bipolar disorder -Continue home medications #Chronic pain -Continue home pain medications #MAURICE -As above CODE STATUS: DNR/DNI Patient is admitted under inpatient status with expected length of stay greater than 2 midnights due to severity of presenting symptoms, risk of adverse event, and complexity of treatment plan. Disposition: Pending hospital course VTE Prophylaxis: Sub-Q Heparin (Unfractionated) Resuscitation Status: DNR/DNI:Do Not Resuscitate/Intubate Vinny Taylor MD Mar 04, 2017 17:34
[2017-03-04] MEDS: Furosemide 10 mg/mL 4 mL Inj IVPUSH SCH (17:35)
[2017-03-04] MEDS: MethylprednisoLONE Sodium Succinate 40 mg/mL Inj IVPUSH SCH (19:42)
[2017-03-04] MEDS: levoFLOXacin Inj 500 MG in IV Premix 1 EACH IV SCH (19:42)
[2017-03-04] MEDS ORDERED: LACTOSE REDUCED FOOD PO SCH (20:30)
[2017-03-04] MEDS: Nystatin 100,000 Unit/mL 5 mL Suspension PO SCH ×2 (20:44→21:02)
[2017-03-04] MEDS: OXcarbazepine 300 mg Tablet PO SCH (21:01)
[2017-03-04] MEDS: Fluticasone-Salmeterol 500-50 Inhaler INHALATION SCH (21:01)
[2017-03-04] MEDS: Fluticasone 0.05% 15 Spray/2 Gm 16 Gm Nasal Spray NASAL SCH (22:39)
[2017-03-05] VITALS (10 sets, daily range): BP systolic 118–156; BP diastolic 70–95; PULSE 78–160; RESP 18–24; O2SAT 91–96
[2017-03-05] MEDS: MethylprednisoLONE Sodium Succinate 40 mg/mL Inj IVPUSH SCH ×3 (01:46→16:49)
--- NOTE | 2017-03-05 06:16 | NUR ---
respiratory Morphine given per pt's request for dyspnea in the beginning of shift after getting up to BSC. Pt reported relief and stated that she's breathing much better tonight. No desaturations noted even when getting up to BSC. Pt wore Trilogy continuously this shift except when taking pills or eating, which she wears 2-3L O2 via NC. Slept most of the night; able to make her needs known.
[2017-03-05] MEDS ORDERED: Pantoprazole 20 mg ER24 Tablet PO SCH (06:30)
[2017-03-05] MEDS: Albuterol-Ipratropium 3 mL Inhalation Solution NEB SCH ×2 (07:48→11:00)
[2017-03-05] MEDS: OXcarbazepine 300 mg Tablet PO SCH ×2 (08:05→20:46)
[2017-03-05] MEDS: Nystatin 100,000 Unit/mL 5 mL Suspension PO SCH ×4 (08:05→20:47)
[2017-03-05] MEDS: Furosemide 10 mg/mL 4 mL Inj IVPUSH SCH (08:06)
[2017-03-05] MEDS: Fluticasone-Salmeterol 500-50 Inhaler INHALATION SCH (08:06)
[2017-03-05] MEDS ORDERED: Tiotropium 18mcg/Cap 5 Capsule Inhaler Kit INHALATION SCH (08:30)
[2017-03-05] MEDS ORDERED: Polyethylene Glycol (PEG) 17 Gm Powder PO PRN (08:30)
[2017-03-05] MEDS: HYDROcodone-APAP 7.5-325 mg Tablet PO PRN ×2 (08:51→16:58)
[2017-03-05] MEDS: Fluticasone 0.05% 15 Spray/2 Gm 16 Gm Nasal Spray NASAL SCH ×2 (09:40→20:46)
--- NOTE | 2017-03-05 11:38 | NUR ---
HR Several calls recd from tele notified of HR up to 160 now. notified each time. Verbal order recd for an EKG. solar fabrication technician called. Pt on O2, HR 40. Addendum: 03/05/17 at 1827 by ENDY COBOS RN IV and PO metoprolol administered. HR remains 80-90s
--- NOTE | 2017-03-05 11:45 | NUR ---
Pt. HR 144-160. EKG being done. Benedict tx. held. Nsg informed.
[2017-03-05] MEDS ORDERED: MeTOProlol 1 mg/mL 5 mL Inj IVPUSH ONE (11:50)
[2017-03-05 12:19] LABS: Mean Corpuscular Hemoglobin 30.8 pg (27.0-35.0); Mean Corpuscular Volume 94.1 fL (81-100)
[2017-03-05 12:20] LABS: BASOPHILS % (AUTO) 0 % (0-3); EOSINOPHILS % (AUTO) 0 % (0-5); MONOCYTES % (AUTO) 2.8 % (4-12); NEUTROPHILS % (AUTO) 92.6 % (40-74); Platelet Count 326 bil/L (150-400)
[2017-03-05 12:41] LABS: TROPONIN T 0.01 ug/L (0.0-0.011)
[2017-03-05 13:06] LABS: Magnesium 1.6 mg/dL (1.6-2.6); Phosphorus 2.9 mg/dL (2.5-4.9)
[2017-03-05] MEDS ORDERED: Levalbuterol 1.25 mg/0.5mL Inhalation Solution NEB SCH (16:00)
[2017-03-05] MEDS ORDERED: Ipratropium 0.02% 0.5 mg/2.5 mL Inhalation Solution NEB SCH (16:00)
[2017-03-05] MEDS ORDERED: Ipratropium 0.02% 0.5 mg/2.5 mL Inhalation Solution NEB PRN (16:02)
[2017-03-05] MEDS ORDERED: Levalbuterol 1.25 mg/0.5mL Inhalation Solution NEB PRN (16:02)
--- NOTE | 2017-03-05 16:32 | PCM.PNMED ---
Subjective Date of Service Mar 05, 2017 Subjective Patient had sinus tachycardia rate 160s. Responded somehow to Lopressor IV and by mouth. Switched DuoNeb to Xopenex. Continues to have significant dyspnea/ air hunger on morphine as needed. Exam Vital Signs Vital Sign - Last Date Time Temp Pulse Resp B/P Pulse Ox O2 Delivery O2 Flow Rate FiO2 03/05/17 11:51 112 18 118/82 96 Nasal Cannula 2.00 03/05/17 08:39 36.8 Intake and Output 03/04/17 03/04/17 03/05/17 Cumulative From/Thru 15:00 23:00 07:00 03/03/17 11:37 - 03/05/17 06:25 Intake Total 1576 ml 118 ml 2477 ml Output Total 1225 ml 2100 ml 4225 ml Balance 351 ml -1982 ml -1748 ml Intake Oral 437 ml 118 ml 655 ml IV Total 1139 ml 1822 ml Output Urine Total 1225 ml 2100 ml 4225 ml # Bowel Movements 1 3 Exam General: Frail elderly woman in a hospital bed. Does not appear in acute distress. Able to communicate through BiPAP mask. HEENT: Normocephalic, atraumatic. External ears without defect. Pupils equal, round, and reactive to light and accommodation. Anicteric sclerae, moist conjunctivae, and no lid lag. BiPAP mask on face. Neck: Supple with full range of motion. No jugular venous distension. No lymphadenopathy or thyromegaly. Cardiovascular: Regular rate and rhythm with no murmurs, rubs, or gallops appreciated Pulmonary: Diffuse crackles throughout. Increased work of breathing observed. Abdomen: Bowel tones present. Soft, mildly tender diffusely, distended. No hepatosplenomegaly or masses appreciated. Extremities: No clubbing, cyanosis, edema, or lymphadenopathy appreciated. Skin: Normal temperature, turgor, and texture; no rash, ulcers, or subcutaneous nodules appreciated. Neurological: Cranial nerves grossly intact. Normal muscle strength, tone, and bulk. Reflexes, coordination, and sensory function within normal limits. No known gait impairment. Psychiatric: Normal mood and affect. Alert and oriented to person, place, and time. IVs and Medications Medications Reviewed: Medications were reviewed in detail Lab and Diagnostics Result Diagram: 03/05/17 1205 03/05/17 1205 X-Rays, CTs and MRIs X-RAY CHEST ONE VIEW, PORTABLE IMPRESSION: 1. Pulmonary emphysema. 2. Apparent vascular shunting to the upper lobes could reflect elevated pulmonary venous pressure but indeterminate. 3. Scar or atelectasis along the left major fissure is unchanged. 4. Increased density at the left base medially could represent a new area of pneumonia Dictated by: Jeffry Xiong M.D. on 03/03/2017 at 13:15 CT ANGIO CHEST PULMONARY EMBOLISM IMPRESSION: 1. No acute process. No pulmonary embolus. 2. Coronary artery disease. 3. Emphysema. 4. Bilateral lung nodules as described above; followup is recommended as below. 5. Presumed subpleural scarring within the left upper lobe laterally. Fleischner Society criteria for SOLID lung nodule followup. Nodule size (mm)Low-risk patientHigh-risk patient<6 (single or multiple)No routine followup.Optional CT at 12 months. 6-8 (single or multiple)CT at 6-12 months, then optional CT at 18-24 mo.CT at 6-12 months, then CT at 18-24 months. >8 (single)CT, PET-CT, or biopsy at 3 months. Same as for low-risk pts. >8 (multiple)CT at 3-6 months, then optional CT at 18-24 mo.CT at 3-6 months, then CT at 18-24 months. Recommendations do not apply to lung cancer screening, patients with immunosuppression, or patients with known primary cancer. Dictated by: Dillon Olea M.D. on 03/03/2017 at 17:24 Assessment & Plan Sandra Briggs is a 71-year-old woman with past medical history significant for COPD and is dependent on Trilogy, bipolar, MAURICE who presented to the [facility] emergency department today due to worsening shortness of breath. #Acute on chronic hypoxemic hypercarbic respiratory failure secondary to severe COPD possible exacerbation, present on admission, active -Patient already has severe COPD at baseline. Since starring to use Trilogy the patient has been entirely dependent on it not really been able to eat or drink -We will treat for presumed COPD exacerbation although this really seems like the steady decline of end-stage COPD -Continue Trilogy -We will continue with empiric antibiotics/Levaquin. Pro-calcitonin negative. We will consider stopping antibiotics tomorrow if no further evidence of infection. Will continue steroids. Switch prednisone to Solu-Medrol 40 IV tid - Switched DuoNeb to Xopenex and Atrovent due to tachycardia, albuterol, steroid inhaler. -Respiratory viral PCR negative -Urine Legionella antigen, strep antigen negative -Blood cultures NGTD, sputum cultures - palliative care consultation tomorrow -CTA negative for PE -Patient has basal crackles. Discontinue fluids. Switched home Lasix to IV 40 mg daily. Echo requested -Patient has fairly extensive polypharmacy on her medication list. Last hospitalization to this hospital is 2014. Medication list has expanded markedly . Mainly outpatient med adjustments. Discussed with pharmacist ,I will try to contact PCP and clarify medication list and rationale -held Spiriva and Advair, continue Xopenex, Atrovent 4 times a day, also continue Solu-Medrol -Palliative consulted # Sinus tachycardia -Due to hypoxia. Electrolytes okay.Switched DuoNeb to Xopenex and Atrovent -TSH low but fT4 normal -Echocardiogram requested -PE ruled out on admission -Metoprolol 25 mg mg bid Chronic issues, present on admission, stable: #Bipolar disorder -Continue home medications #Chronic pain -Continue home pain medications #MAURICE -As above CODE STATUS: DNR/DNI Patient is admitted under inpatient status with expected length of stay greater than 2 midnights due to severity of presenting symptoms, risk of adverse event, and complexity of treatment plan. Disposition: Pending hospital course VTE Prophylaxis: Sub-Q Heparin (Unfractionated) VTE Mechanical Devices: Venous Foot Pump Resuscitation Status: DNR/DNI:Do Not Resuscitate/Intubate Vinny Taylor MD Mar 05, 2017 16:32
[2017-03-05] MEDS: levoFLOXacin Inj 500 MG in IV Premix 1 EACH IV SCH (17:01)
--- NOTE | 2017-03-05 17:30 | DRSVH ---
[facility] [address] [place] [address] Echocardiogram Report Name: LISA QUINTERO LStudy Date: 03/05/2017 Height: 63 in Hospital Exam Location: [facility] Weight: 130 lb Gender: Female BSA: 1.6 m2 : 1945 Age: 71 yrs BP: 154/90 mmHg Reason For Study: Dyspnea Ordering Physician: Performed By: Dipti Musa Referring Physician: Dr. Leola Talavera Interpretation Summary The left ventricle is normal in size. The ejection fraction is estimated to be 65-70%. The right ventricle is normal in size and function. There is mild to moderate tricuspid regurgitation. Compared to the prior echo exam, there has been an increase in TR severity. The right ventricular systolic pressure is estimated at 36 mmHg assuming a right atrial pressure of 8 mm Hg. Compared to the prior echo exam, there has been an increase in the severity of pulmonary hypertension. Procedure: A two-dimensional transthoracic echocardiogram with color flow and Doppler was performed. The study quality was technically adequate. Comparison is made with the echocardiogram of 08/05/16. The patient was in normal sinus rhythm during the exam. Left Ventricle: The left ventricle is normal in size. There is normal left ventricular wall thickness. There is no thrombus. A false chord is noted (normal variant). The ejection fraction is estimated to be 65-70%. There has been no significant change since the previous study. There are no focal wall motion abnormalities. Spectral Doppler of the mitral valve shows a normal E/A wave ratio. Right Ventricle: The right ventricle is normal in size and function. Atria: Both atria are normal in size. Both atria have remained unchanged in size since the prior echo exam. A prominent eustachian valve is noted. The interatrial septum is intact with no evidence for an atrial septal defect. Mitral Valve: The mitral valve leaflets appear thickened, but open well. The mitral valve leaflets are slightly calcified. There is trace mitral regurgitation. Compared to the prior echo study, there has been no change in the severity of mitral regurgitation. Aortic Valve: The aortic valve is trileaflet. The aortic valve opens well. No aortic regurgitation is present. Tricuspid Valve: The tricuspid valve leaflets are thickened and/or calcified, but open well. There is mild to moderate tricuspid regurgitation. The right ventricular systolic pressure is estimated at 36 mmHg assuming a right atrial pressure of 8 mm Hg. Compared to the prior echo exam, there has been an increase in TR severity. Compared to the prior echo exam, there has been an increase in the severity of pulmonary hypertension. Pulmonic Valve: The pulmonic valve is not well seen, but is grossly normal. There is mild to moderate pulmonic regurgitation. Great Vessels: The aortic root is normal size. The ascending aorta is normal in size. The aortic arch could not be visualized. The pulmonary artery is normal size. The IVC is of normal diameter and collapses less than 50% with a sniff. This suggests a right atrial pressure of 8 mm Hg. Pericardium/ Pleura There is no pericardial effusion. There is no pleural effusion. MMode/2D Measurements & Calculations LVIDd: 3.8 cm LA dimension: 2.0 cm RA long axis LVOT diam LVIDs: 2.5 cm FS: 34.5 % LA A2 area: 13.7 cm RA area Ao root diam EPSS: 0.09 cm LA A4 area: 11.4 cm IVSd: 0.74 cm LA length (vol): 4.2 cm : 10.6 cm asc Aorta LVPWd: 0.62 cm LA vol: 31.4 ml RA vol: 21.6 mlDiam: 3.0 cm LA vol index RA : 13.4 mm2 IVC diam: 0.79 cm LV hahn. diameter/BSA LV sys. diameter/BSA RVD1 (basal) TAPSE: 1.9 cm (cm/m^2): 2.4 (cm/m^2): 1.6 Doppler Measurements & Calculations Ao V2 max: 95.2 cm/sec MV E max fahad MV E/A: 1.4 TR max fahad Ao max P.6 mmHg : 91.4 cm/sec Lat Peak E' Fahad : 266.6 cm/sec Ao mean P.1 mmHg MV A max fahad TR max PG LVOT Max Fahad : 63.3 cm/sec E/E' lat: 10.7 : 28.4 mmHg : 97.8 cm/sec MV P1/2t PA V2 max : 46.8 msec : 85.1 cm/sec GARCÍA(I,D): 3.0 cm PA mean PG sev ratio: 0.98 : 1.8 mmHg MV P1/2t max fahad Ao V2 mean LV V1 max PG PA V2 mean : 69.5 cm/sec : 64.6 cm/sec Ao V2 VTI LV V1 VTI: 18.1 cm MVA(P1/2t): 4.7 cm2 GARCÍA(V,D): 3.1 cm2 GARCÍA indexed to BSA (cm^2/m^2): 1.9 Reading Physician:PM
[2017-03-06] VITALS (12 sets, daily range): BP systolic 111–163; BP diastolic 65–108; PULSE 71–90; RESP 18–28; O2SAT 92–97
[2017-03-06] MEDS: MethylprednisoLONE Sodium Succinate 40 mg/mL Inj IVPUSH SCH ×3 (00:22→17:14)
--- NOTE | 2017-03-06 06:33 | NUR ---
HR/dyspnea Metoprolol given as ordered. HR remained between 60s-80s when asleep; up to 90s-110s with activity Morphine given per pt's request for dyspnea with good relief. Pt wore her trilogy most of the night sating in mid 90s. Pt reported breathing much better today than when admitted. bed alarm on for safety. able to make needs known.
[2017-03-06] MEDS: Nystatin 100,000 Unit/mL 5 mL Suspension PO SCH ×4 (09:01→20:14)
[2017-03-06] MEDS: OXcarbazepine 300 mg Tablet PO SCH ×2 (09:01→20:13)
[2017-03-06] MEDS: Fluticasone 0.05% 15 Spray/2 Gm 16 Gm Nasal Spray NASAL SCH ×2 (09:02→20:13)
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
--- NOTE | 2017-03-06 12:38 | PCM.CHPMED ---
Subjective Date of Service: Mar 06, 2017 Provider requesting consult: Vinny Taylor MD Primary Physician: Admitting Physician: Alec Velasquez MD Primary Care Physician: Sandra Talavera MD Attending Physician: Vinny Taylor MD Chief Complaint: Chief Complaint: Dyspnea History of Present Illness: Pulmonology consult note 71-year-old female with severe COPD oncology, bipolar, and obstructive sleep apnea, who is well known to pulmonary service, was admitted on March 03 due to chronic and severe dyspnea the patient reports began after tapering her chronic prednisone at the end of January. Interesting to note that the patient was only intermittently taking her prednisone due to reports that it did not make her feel well. Patient describes worsening dyspnea with wheezing, but no cough or sputum, no increased edema or weight gain. Patient also complains of some diarrhea and nausea associated with her prolonged dyspnea. She Denies any recent contacts are sick, as well as fevers and chills. Received Trilogy on February 21 and has been using this around the clock to help to control her breathing which has progressively worsened. Patient is able to take off Trilogy to eat, but even this has been very difficult days proceeding admission. Patient states she has been compliant with all of her medications including inhalers (Brio, Spiriva, and nebulized albuterol when necessary). In the ED the patient was worked up for pulmonary embolism, with CT that was negative. Over her course the patient was developed sinus tachycardia possibly related to albuterol and hypoxia that seems to be well-controlled today. Today the patient states that she is doing a little bit better. She still has obvious dyspnea, choosing to breathe through her mouth even though she is wearing nasal cannula. Able to eat without too much trouble. Still prefers to wear Trilogy throughout the day. Recent pulmonary studies include the following CT chest PE 03/03/17: No PE; unchanged left lung nodules; spiculated 5 mm right upper lobe lung nodule not previously seen ABG 03/03/17: Mild respiratory acidosis; previous ABG shows compensated hypercarbia PFT 02/03/17: post bronchodilator FVC 88 % FEV1 38 % ratio 0.58 TLC 106% RV 172% DLCO 23%; DLCO reduced from 51% in 2005 Echocardiogram 03/05/17: Ejection fraction 65-70%; right ventricle normal size, RV pressure estimated at 36 inches mildly higher than the last echo Pulmonology was consulted to help in the management of this patient's COPD Review of Systems: See history of present illness PMH Past Medical History Muscle spasm Arthritis Obstructive sleep apnea Degenerative arthritis of spine Pseudophakia Hypoxia Insomnia Spondylosis without myelopathy Astigmatism Venous retinal branch occlusion Hyperlipidemia COPD (chronic obstructive pulmonary disease) Bipolar 1 disorder Restless leg syndrome Chronic bronchitis Hearing loss in left ear Surgical History Arthroscopic subacromial decompression Hysterectomy Facial surgery Ankle surgery Home Medications Seems to be some confusion over her polypharmacy From our recent clinic visit the patient is on [place], Spiriva, and nebulized albuterol Allergies: Coded Allergies: Penicillins (Verified Allergy, Unknown, FLUSH HOT & reddened skin, ) Family History Family History Patient has 3 children all of whom have mental illness. Social History Hx Alcohol Use: NoHx Substance Use: Yes ("marijuana brownies", QUIT)Hx Tobacco Use: Yes (8 CIGARETTES A DAY) Smoking Status: Former Smoker Exam Vital Signs Vital Sign - Last Date Time Temp Pulse Resp B/P Pulse Ox O2 Delivery O2 Flow Rate FiO2 03/06/17 11:49 83 03/06/17 10:39 36.7 18 95 Nasal Cannula 2.00 Intake and Output 03/05/17 03/05/17 03/06/17 Cumulative From/Thru 15:00 23:00 07:00 03/03/17 11:37 - 03/05/17 19:44 Intake Total 1300 ml 3777 ml Output Total 1125 ml 5350 ml Balance 175 ml -1573 ml Intake Oral 1300 ml 1955 ml IV Total 1822 ml Output Urine Total 1125 ml 5350 ml # Bowel Movements 1 4 General: Alert, Oriented X3, Cooperative, Mild Distress Eyes: PERRLA, EOMI Mouth: Mucous Membr Moist/[place] Neck: Supple Chest & Lungs: Diminished breath sounds, Other (mental wheezing or crackles heard, difficult to position the patient, diminished breath sounds) Cardiovascular: Regular Rate/Rhythm Abdomen: Non-tender, Normoactive bowel tones Neurological: Grossly Neurologically Intact Lab and Diagnostics Result Diagram: 03/05/17 1205 03/05/17 1205 X-Rays, CTs and MRIs Imaging reviewed Assessment & Plan Assessment 71-year-old female well-known to the pulmonary service who has severe end-stage COPD with a DLCO of 23% indicating very poor gas exchange. Patient seems to been doing okay until earlier this month when she became dependent on Trilogy, only removing it from meals. She denies any recent sick contacts and her respiratory panel is pending negative. Other microbiology studies have been negative including blood cultures and a strep antigen. Imaging revealed a new right upper lung 5 mm nodule that was previously seen, but otherwise appears stable from last. The patient seems to be stabilizing and even possibly improved today per her report. When she was examined she was eating with nasal cannula and saturating in the mid 90s. Patient was recently tapered off her prednisone which she had been intermittently taking anyways. Problem list Acute hypoxic and hypercarbic respiratory failure Exacerbation of Severe COPD with sinus tachycardia New right upper lung 5 mm nodule Obstructive sleep apnea Chronic pain Plan 1. Increase Solu-Medrol 125 mg every 8hr for 2-3 days 2. Continue Xopenex and ipratropium DuoNeb every 4 while awake 3. Recommend 3-6 month follow-up CT of the chest due to the new right upper lung nodule 4. See that palliative has already been consulted and agree 5. Continuous Trilogy with respiratory therapy Thank you for allowing us to participate in the care of this patient Problems: VTE Prophylaxis: Sub-Q Heparin (Unfractionated) VTE Mechanical Devices: Venous Foot Pump Resuscitation Status: DNR/DNI:Do Not Resuscitate/Intubate Attending Statement I have seen and examined this patient with the resident physician. Vital signs , labs, imaging have been reviewed. I agree with the assessment and plan above. Please refer to my separately dictated progress note for any modifications to above. Esperanza Ryan M.D. Pulmonary and Critical Care medicine Pager [phone] Justin Gonzalez DO Mar 06, 2017 12:38 Esperanza Ryan MD Mar 06, 2017 16:15
--- NOTE | 2017-03-06 13:02 | NUR ---
Palliative care note D/A: Palliative care referral received today from Dr. Taylor to assist with goals of care. Pt admitted with end stage COPD.Pt admitted with COPD (09/03 use of Trilogy), bipolar, anxiety and MAURICE. Pt is known to live alone as her partner Carly in December 2015. He was assisted by [facility] at the time. She notes that she has three sons and does not wish to have them involved in her care. She is working with an plant equipment engineer to finalize her arrangements. Currently DNR/DNI and Dr. Ly will work on POLST closer to dc. Pt notes that she has YESSY in the home. She believes that she has 5 hours, 3 times a week. Her caregivers are Amanda Menjivar and Sandra, last name unknown. Her YESSY CM is Isela, last name unknown. While in the room, pt asks this worker to call her friend Cuba at [phone]. He usually takes her to jain but she has been too ill to attend recently. She does not know his last name. She has told Dr. Ly that she has another friend Adrian Jeronimo, phone number unknown. In discussion with pt, she indicates that she would like hospice services. Dr. Ly has written order for hospice consult. Met with pt to choice and she chooses [facility]. Phone call to Gertrude who is able to arrange for 2:30 informational visit for today. Pt indicates to this worker that she is having grave difficulty managing at home. She indicates that even when friends or CG left prepared food for her, she was unable to eat it. She was unable to get OOB to attend to her needs or the needs of her home. She indicates it took her two hours to peel some boiled eggs and mash them. She is open to the idea of SNF but is not familiar with them. Explain to her that with her insurance of [employer]- she will be able to have both SNF and Hospice coverage at a nursing facility. Have indicated that this worker will discuss above with ELLIOTT SANCHEZ who can talk to her about dc planning. Above discussed with DANIEL Moreno, dcp. P: Palliative care to follow. Rhea MAJANOSW, [facility] Addendum: 03/06/17 at 1500 by ARISTEO MONTANO SS PC note amendment Janie here to visit with pt. She comes to PC office to report that pt not able to participate. This worker and Janie go back to discuss with pt. She is sleepy and her speech is somewhat garbled. Decision reached to have [facility] attempt info visit again on Sat am , when pt may be less tired. Discuss with Gertrude who is able to arrange that DANIEL Gomez from [facility] will visit pt on 03/07/17 at 1100. left for Tiffanie and also have called and discussed with her. Dr. Ly aware of pt condition. P: Palliative to continue to follow. Rhea LEVIN, [facility]
[2017-03-06] MEDS: Ipratropium 0.02% 0.5 mg/2.5 mL Inhalation Solution NEB SCH ×3 (15:36→23:01)
--- NOTE | 2017-03-06 15:38 | NUR ---
Shift: VSS, no c/o chest pain, tele SR 70s-90s. O2 sats 95% on 2L NC, pt has had trilogy unit off most of day. Up to BSC with SBA, significant dyspnea with activity but recovers easily. Pt reports that Morphine given overnight "helped my breathing, but I feel so medicated, like I can't do anything." Palliative MD notified, changes to Morphine orders. Care ongoing.
[2017-03-06] MEDS: Levalbuterol 1.25 mg/0.5mL Inhalation Solution NEB SCH ×2 (16:00→23:01)
--- NOTE | 2017-03-06 16:37 | PCM.PNMED ---
Subjective Date of Service Mar 06, 2017 Subjective Patient continues to have significant dyspnea. Afebrile. Exam Vital Signs Vital Sign - Last Date Time Temp Pulse Resp B/P Pulse Ox O2 Delivery O2 Flow Rate FiO2 03/06/17 15:58 85 25 94 avaps 03/06/17 15:45 36.7 162/102 2.00 Intake and Output 03/05/17 03/05/17 03/06/17 Cumulative From/Thru 15:00 23:00 07:00 03/03/17 11:37 - 03/05/17 19:44 Intake Total 1300 ml 3777 ml Output Total 1125 ml 5350 ml Balance 175 ml -1573 ml Intake Oral 1300 ml 1955 ml IV Total 1822 ml Output Urine Total 1125 ml 5350 ml # Bowel Movements 1 4 Exam General: Frail elderly woman in a hospital bed. In moderate respiratory distress HEENT: Normocephalic, atraumatic. External ears without defect. Pupils equal, round, and reactive to light and accommodation. Anicteric sclerae, moist conjunctivae, and no lid lag. BiPAP mask on face. Neck: Supple with full range of motion. No jugular venous distension. No lymphadenopathy or thyromegaly. Cardiovascular: Regular rate and rhythm with no murmurs, rubs, or gallops appreciated Pulmonary: Diffuse crackles throughout. Increased work of breathing observed. Abdomen: Bowel tones present. Soft, mildly tender diffusely, distended. No hepatosplenomegaly or masses appreciated. Extremities: No clubbing, cyanosis, edema, or lymphadenopathy appreciated. Skin: Normal temperature, turgor, and texture; no rash, ulcers, or subcutaneous nodules appreciated. Neurological: Cranial nerves grossly intact. Normal muscle strength, tone, and bulk. Reflexes, coordination, and sensory function within normal limits. No known gait impairment. Psychiatric: Normal mood and affect. Alert and oriented to person, place, and time. IVs and Medications Medications Reviewed: Medications were reviewed in detail Lab and Diagnostics Result Diagram: 03/05/17 1205 03/05/17 1205 X-Rays, CTs and MRIs X-RAY CHEST ONE VIEW, PORTABLE IMPRESSION: 1. Pulmonary emphysema. 2. Apparent vascular shunting to the upper lobes could reflect elevated pulmonary venous pressure but indeterminate. 3. Scar or atelectasis along the left major fissure is unchanged. 4. Increased density at the left base medially could represent a new area of pneumonia Dictated by: Jeffry Xiong M.D. on 03/03/2017 at 13:15 CT ANGIO CHEST PULMONARY EMBOLISM IMPRESSION: 1. No acute process. No pulmonary embolus. 2. Coronary artery disease. 3. Emphysema. 4. Bilateral lung nodules as described above; followup is recommended as below. 5. Presumed subpleural scarring within the left upper lobe laterally. Fleischner Society criteria for SOLID lung nodule followup. Nodule size (mm)Low-risk patientHigh-risk patient<6 (single or multiple)No routine followup.Optional CT at 12 months. 6-8 (single or multiple)CT at 6-12 months, then optional CT at 18-24 mo.CT at 6-12 months, then CT at 18-24 months. >8 (single)CT, PET-CT, or biopsy at 3 months. Same as for low-risk pts. >8 (multiple)CT at 3-6 months, then optional CT at 18-24 mo.CT at 3-6 months, then CT at 18-24 months. Recommendations do not apply to lung cancer screening, patients with immunosuppression, or patients with known primary cancer. Dictated by: Dillon Olea M.D. on 03/03/2017 at 17:24 Cardiac Echo Impressions Interpretation Summary The left ventricle is normal in size. The ejection fraction is estimated to be 65-70%. The right ventricle is normal in size and function. There is mild to moderate tricuspid regurgitation. Compared to the prior echo exam, there has been an increase in TR severity. The right ventricular systolic pressure is estimated at 36 mmHg assuming a right atrial pressure of 8 mm Hg. Compared to the prior echo exam, there has been an increase in the severity of pulmonary hypertension. Assessment & Plan Sandra Briggs is a 71-year-old woman with past medical history significant for COPD and is dependent on Trilogy, bipolar, MAURICE who presented to the [facility] emergency department today due to worsening shortness of breath. #Acute on chronic hypoxemic hypercarbic respiratory failure secondary to severe COPD exacerbation, present on admission, active -Patient already has severe COPD at baseline. Patient was recently referred to 3 weeks ago outpatient. she was started on Trilogy and medications adjusted. She has advanced/end stage COPD per outpatient PFTs -We will treat for presumed COPD exacerbation although this really seems like the steady decline of end-stage COPD -Continue Trilogy. Discussed with Dr Ryan ,will transfer patient to [facility] for more close monitoring and optimization of her COPD regimen -Initially started with empiric antibiotics/Levaquin. Pro-calcitonin negative. Discontinued antibiotics today 03/06. Initially on Solu-Medrol 40 IV tid. Increase to 125 mg IV 3 times a day per Dr Ryan - Switched DuoNeb to Xopenex and Atrovent due to tachycardia, albuterol, steroid inhaler. -Respiratory viral PCR negative ,Urine Legionella antigen, strep antigen negative -Blood cultures NGTD, - palliative care consulted -CTA negative for PE - Echo worsened pulmonary hypertension -Patient has fairly extensive polypharmacy on her medication list. Last hospitalization to this hospital is 2014. Medication list has expanded markedly . Mainly outpatient med adjustments. Discussed with pharmacist ,I will try to contact PCP and clarify medication list and rationale -held Spiriva and Advair, continue Xopenex, Atrovent 4 times a day, also continue Solu-Medrol increased dose -Palliative consulted # Sinus tachycardia -Due to hypoxia. Electrolytes okay.Switched DuoNeb to Xopenex and Atrovent -TSH low but fT4 normal -Echocardiogram as above -PE ruled out on admission -Metoprolol 25 mg mg bid Chronic issues, present on admission, stable: #Bipolar disorder -Continue home medications #Chronic pain -Continue home pain medications #MAURICE -As above CODE STATUS: DNR/DNI Patient is admitted under inpatient status with expected length of stay greater than 2 midnights due to severity of presenting symptoms, risk of adverse event, and complexity of treatment plan. Disposition: Transfer to [facility] VTE Prophylaxis: Sub-Q Heparin (Unfractionated) VTE Mechanical Devices: Venous Foot Pump Resuscitation Status: DNR/DNI:Do Not Resuscitate/Intubate Vinny Taylor MD Mar 06, 2017 16:37
--- NOTE | 2017-03-06 17:01 | CONS ---
[address] [address] CONSULTATION REPORT PATIENT: LISA QUINTERO : 1945 MR#: [id number] ADMIT: 03/03/2017 JOB ID: [id number] DATE OF SERVICE: 03/06/2017 PULMONARY CONSULTATION NOTE: The patient s a 71-year-old woman seen in consultation at the request of Dr. Taylor for acute on chronic hypoxic respiratory failure and COPD exacerbation. The patient was seen and evaluated with resident physician, Justin Gonzalez DO. Please refer to his separate detailed note for additional information. The following is a brief attending note. HISTORY OF PRESENT ILLNESS: The patient is a 71-year-old woman with a 50+ pack-year smoking history who I actually saw in the outpatient Pulmonology Clinic last on February 12. The patient was new to my clinic from that visit and was here to see me for COPD and worsening shortness of breath. She had had multiple exacerbations over the preceding months which were treated with oral prednisone to the point that she was on pretty much daily prednisone by the time I saw her. She was not, however, on much in the way of outpatient inhalers, so I did initiate a workup which included a chest CT to rule out PE, echocardiogram, arterial blood gas, etc. These results are summarized separately in Dr. Gonzalez's note, but essentially there was no pulmonary embolism or other explanation for her dyspnea, and she seemed to have severe emphysema and COPD with FEV1 38% and DLCO of 23%. Blood gas also showed compensated hypercarbia with a pCO2 of 58 but pH of 7.4. For this reason I started her on a combination inhaled corticosteroid/long-acting beta agonist, i.e. Breo with Spiriva, albuterol nebulizer, as well as arranged for a Trilogy home ventilator. She was also on oxygen continuously which she has been using at 2-3 L. The patient called soon after, saying the Breo was not helping her, so we switched her to Symbicort which again she called to say it was not helping her. but as far as I know we have not given her any other inhalers. She has been using the Trilogy nearly continuously reportedly but has not had any relief and so presented to the emergency department again on the of this month. She had another CT pulmonary angiogram which showed no PE. She had a blood gas which showed no evidence of acute hypercarbia. Currently, when I came into see her, she was sitting on the commode, visibly dyspneic and in distress and barely able to speak sentences. We immediately called RT to give her a nebulizer because it appears she has not had any nebs all day today. Also we put her back on her Trilogy since she was off of this. Past medical history, social history, family history, and review of systems are per Dr. Gonzalez's separate detailed note. PHYSICAL EXAMINATION: Vital signs reviewed. Temperature 36.7, pulse 85, respirations 25, BP 162/102, sats 94% on 2 L nasal cannula. General: Elderly woman sitting up in bed, appearing older than stated age. She is visibly dyspneic and tachypneic and having difficulty speaking full sentences. Chest: Poor air movement bilaterally. Heart: Regular rate, rhythm. Skin: She has multiple areas of bruising. Extremities: No cyanosis, clubbing, edema. Please refer to Dr. Gonzalez's separate detailed physical exam for complete information. LABORATORIES: Reviewed. BNP is 500. Procalcitonin is -0.03. Chest x-ray and CT chest reviewed. Notable for emphysema. No pulmonary embolism. Lung nodules, the largest of which measures 5-6 mm, noted. ASSESSMENT: 1. Acute on chronic hypoxic respiratory failure. 2. Chronic obstructive pulmonary disease (COPD) exacerbation. 3. Severe chronic obstructive pulmonary disease (COPD). FEV1 38%. DLCO 23%. RECOMMENDATIONS: This 71-year-old woman with prior 50 pack-year smoking history and severe COPD and chronic hypoxic hypercarbic respiratory failure is presenting with an acute exacerbation. Overall compared to when I saw her three weeks ago, she does not appear to have improved much and in fact seems worse despite maximal medical therapy. With regards to her current meds, I increased her Solu-Medrol from 40 to 125 mg q.8. I changed her nebulizer orders to levalbuterol and ipratropium four times a day scheduled. I stopped levofloxacin since her procalcitonin is negative and she does not have any evidence of pneumonia and put her on azithromycin instead. She is currently on Trilogy but I am really concerned about her remaining on the 3rd floor with how she is doing currently despite her being DNR, DNI. My recommendation is to move her to a monitored floor and have her on the hospital BiPAP so she can have a little closer attention. With regards to home meds, she should be on an inhaled corticosteroid/long-acting beta agonist-Advair is fine. She should continue Spiriva and albuterol nebulizer p.r.n., Trilogy at home, and oxygen as well. I would like to add azithromycin 250 mg Thursday, Thursday, and Thursday to her home regimen as a long-term medication. She also needs a followup chest CT for her lung nodules in about 6-12 months, which we will arrange as an outpatient. I have noted that Palliative Care is evaluating her and considering hospice. I think this is fine. I would be wary, however, of adding both benzodiazepines and narcotics simultaneously for her and I see that morphine is ordered p.r.n. This is probably fine to start with and I would watch how she does on this. She has no current evidence of hypercarbia so I would watch her for any change in symptoms and we could get a blood gas if she shows signs of decline. I will follow up on her tomorrow.
[2017-03-06] MEDS: HYDROcodone-APAP 7.5-325 mg Tablet PO PRN (17:13)
--- NOTE | 2017-03-06 17:29 | NUR ---
spiritual care: pall care physician referral brief introductory visit. pt glad for connection with baptist (episcopal visitor) and spiritual care support. calm, pleasant. agreeable for follow up visit second visit in room 2002 shortly after transfer. Pt very expressive of pain, agitation, repositioning attempts to manage pain. Pt (with bipap) recited lords prayer and accepted rosary beads. nurse attentive.
--- NOTE | 2017-03-06 17:43 | NUR ---
Respiratory Called to rm by RN, Pt not tolerating V60. Found Pt on RA gasping, sat 86%, HR 105. Pt has weak, ineffective cough. Put Pt back on home trilogy with 4 L bleed in, sat 94%, tolerating better, still grunting.
--- NOTE | 2017-03-06 18:50 | NUR ---
Transfer 162 - Received report from Vicky Haley RN on [facility]. 1640 - She arrived to [facility] 2002 from [facility] 3031. She was placed on the Bipap by Respiratory Therapist Jamari Nunez, [id number] - Paged Dr. Ryan as she was not tolerating the Bipap and was aspirating on her own saliva and coughing. She was struggling to breath and was switched to the Trilogy by RT. Updated Dr. Becker as he walked past. Dr. Ryan called back and said that she has anxiety and to try Morphine for her air hunger and then try to put her back on the Bipap. Gave her the morphine, but she refused the Bipap. She seemed to relax with her breathing on the trilogy and her O2 saturation improved to the 90% instead of the high 80%. RT noted this. 180 - Dr. Taylor called and said he couldn't find any phone numbers to notify family of the transfer. Talked to the patient and she said she didn't have any family. She gave this nurse a couple of friends' numbers to notify. Called Dr. Taylor back and gave him the numbers to call. Care continues.
[2017-03-07] VITALS (13 sets, daily range): BP systolic 139–175; BP diastolic 88–109; PULSE 72–91; RESP 16–32; O2SAT 92–98
[2017-03-07] MEDS: MethylprednisoLONE Sodium Succinate 40 mg/mL Inj IVPUSH SCH ×2 (04:38→08:36)
[2017-03-07] MEDS: Ipratropium 0.02% 0.5 mg/2.5 mL Inhalation Solution NEB SCH ×4 (07:20→20:33)
[2017-03-07] MEDS: Levalbuterol 1.25 mg/0.5mL Inhalation Solution NEB SCH ×4 (07:20→20:33)
--- NOTE | 2017-03-07 07:27 | NUR ---
V60 on S/B. Pt does not tolerate. On home trilogy.
--- NOTE | 2017-03-07 07:58 | NUR ---
Respiratory/Mentation Pt SpO2 on home trilogy with 4L O2 bleed-in is 88-95% when pt is at rest. Pt did try to get onto BSC during the shift and pt sats went into the low 80s and pt had a hard time getting sats back up. Pt has had moments where she gets confused and needs to be reoriented.
[2017-03-07] MEDS: Fluticasone 0.05% 15 Spray/2 Gm 16 Gm Nasal Spray NASAL SCH ×2 (08:17→20:30)
[2017-03-07] MEDS: Nystatin 100,000 Unit/mL 5 mL Suspension PO SCH ×4 (08:18→22:00)
[2017-03-07] MEDS: OXcarbazepine 300 mg Tablet PO SCH ×2 (08:19→21:00)
[2017-03-07] MEDS: Azithromycin Inj 500 MG in Dextrose 5% w/Vial Mate 250 ML IV SCH (09:45)
--- NOTE | 2017-03-07 11:14 | PROG NOTE ---
[address] [address] PROGRESS NOTE PATIENT: LISA QUINTERO : 1945 MR#: [id number] ADMIT: 03/03/2017 JOB ID: [id number] PULMONARY PROGRESS NOTE: DATE: 03/07/2017 The patient is a 71-year-old woman seen in followup for COPD exacerbation and acute on chronic hypoxic respiratory failure in the setting of severe COPD. FEV1 38%. INTERVAL HISTORY: When I saw her, the patient was lying in bed, somewhat restless and not really following commands or verbal with me. REVIEW OF SYSTEMS: Could not be obtained. PHYSICAL EXAMINATION: Vital signs reviewed. Afebrile. Pulse 91, respirations 32, BP 175/106, sats 100% on 4 L oxygen with Trilogy noninvasive ventilator. General: Elderly woman appearing older than stated age. Lying in bed, eyes closed, opens to voice but does not really follow commands for me. Briefly, she said hello back when I said hello, but beyond that would not answering questions or track. Chest: Poor air movement bilaterally. LABORATORIES: Reviewed. None today. ASSESSMENT AND RECOMMENDATIONS: 1. Chronic obstructive pulmonary disease exacerbation. 2. Acute on chronic hypoxic respiratory failure. 3. Severe chronic obstructive pulmonary disease. FEV 38% and DLCO 23%. 4. Bipolar disorder. A 71-year-old woman with bipolar disorder, longstanding prior smoking history and severe COPD and emphysema is here for worsening hypoxic respiratory failure and COPD exacerbation. As discussed previously, I met her for the first time in Pulmonary Clinic three weeks ago and had initiated multiple medications as well as started her on Trilogy but, despite that, she has continued to get worse. She is currently on maximal medical therapy for COPD exacerbation with Solu-Medrol 125 mg IV q.8 h., azithromycin, DuoNeb scheduled, Trilogy noninvasive ventilator. Last blood gas shows no evidence of acute hypercarbia. We tried her on a traditional hospital BiPAP machine but she did not tolerate this and preferred the Trilogy. She has been getting low-dose morphine p.r.n. for air hunger and this has actually been helping her saturations. It appears that it takes away her anxiety and allows her to breathe more synchronously with the Trilogy ventilator as far as I can tell. Currently, however, she seems more delirious. It looks like she has vacillating between clear mental status with respiratory distress and some delirium/somnolence. I would like to get a blood gas now and make sure she is not getting hypercarbic. I would also like to keep her supplemental oxygen low enough that her sats stay the low 95% and I explained this to nursing and RT staff. I turned her down from 4 to 3 L and with that her sats came down a little bit from 100% to 97%. I think we should turn her down further to 2 L if needed. As discussed previously, we have looked for alternative etiologies such as heart failure, pneumonia and PE on all of this workup has been negative. From a pulmonary standpoint, there is not much else to add. She is DNR/DNI based on her conversation with Palliative Care on Thursday. With her mentation currently the way it is, I was unable to discuss any of this further with her, specifically goals of care. On reviewing the notes it appears she has no family that needs to be notified and only friends involved.
--- NOTE | 2017-03-07 14:56 | NUR ---
respiratory/activity/mentation pt continues on trilogy with oxygen bleed in, titrated down to 2L to keep saturation between 88-95% per MD orders. pt restless at times, drowsy. speech mumbly. moderately able to make needs known. pt oriented yet forgetful. pt tolerated am meds whole in applesauce. nasal cannula placed during med pass and triology replaced. will continue to monitor.
--- NOTE | 2017-03-07 15:45 | NUR ---
JOHN signed over the phone by pt's MIKE Jeronimo [phone] Denia Andrea, CORE BLOWER OPERATOR
--- NOTE | 2017-03-07 16:43 | PCM.PNMED ---
Subjective Date of Service Mar 07, 2017 Subjective Overnight Ms. Melchor was transferred to the [facility] from [facility] due to increasing oxygen needs. This morning she her mentation is quite poor and she is somnolent. Interview was difficult as she did not interact or answer questions. There was a Hospice meeting scheduled for today that is postponed at this time due to her inability to interact meaningfully. Exam Vital Signs Vital Sign - Last Date Time Temp Pulse Resp B/P Pulse Ox O2 Delivery O2 Flow Rate FiO2 03/07/17 16:16 Supplement Oxygen CPAP/BIPAP 03/07/17 16:12 77 25 94 1.00 03/07/17 15:25 36.9 162/109 03/06/17 16:58 28 Intake and Output 03/06/17 03/06/17 03/07/17 Cumulative From/Thru 15:00 23:00 07:00 03/03/17 11:37 - 03/07/17 06:17 Intake Total 474 ml 0 ml 4251 ml Output Total 300 ml 5650 ml Balance 174 ml 0 ml -1399 ml Intake Oral 474 ml 0 ml 2429 ml IV Total 1822 ml Output Urine Total 300 ml 5650 ml # Voids 2 2 # Bowel Movements 4 Exam General: Frail elderly woman in a hospital bed, drowsy, breathing with some difficulty HEENT: Normocephalic, atraumatic. External ears without defect. BiPAP mask on face. Patient would not open eyes to examination. Neck: Supple with full range of motion. No jugular venous distension or thyromegaly. Cardiovascular: Regular rate and rhythm with no murmurs, rubs, or gallops appreciated Pulmonary: Tachypneic, Diffuse crackles throughout. Increased work of breathing observed. Abdomen: Bowel tones present. Soft, mildly distended. No hepatosplenomegaly appreciated. Extremities: No clubbing, cyanosis, edema, or lymphadenopathy appreciated. Skin: Normal temperature, turgor, and texture; no rash, ulcers Neurological: Unable to assess as patient is not interactive. Psychiatric: Unable to assess as patient is not interactive. IVs and Medications Medications Reviewed: Medications were reviewed in detail Lab and Diagnostics Result Diagram: 03/05/17 1205 03/05/17 1205 X-Rays, CTs and MRIs X-RAY CHEST ONE VIEW, PORTABLE IMPRESSION: 1. Pulmonary emphysema. 2. Apparent vascular shunting to the upper lobes could reflect elevated pulmonary venous pressure but indeterminate. 3. Scar or atelectasis along the left major fissure is unchanged. 4. Increased density at the left base medially could represent a new area of pneumonia Dictated by: Jeffry Xiong M.D. on 03/03/2017 at 13:15 CT ANGIO CHEST PULMONARY EMBOLISM IMPRESSION: 1. No acute process. No pulmonary embolus. 2. Coronary artery disease. 3. Emphysema. 4. Bilateral lung nodules as described above; followup is recommended as below. 5. Presumed subpleural scarring within the left upper lobe laterally. Fleischner Society criteria for SOLID lung nodule followup. Nodule size (mm)Low-risk patientHigh-risk patient<6 (single or multiple)No routine followup.Optional CT at 12 months. 6-8 (single or multiple)CT at 6-12 months, then optional CT at 18-24 mo.CT at 6-12 months, then CT at 18-24 months. >8 (single)CT, PET-CT, or biopsy at 3 months. Same as for low-risk pts. >8 (multiple)CT at 3-6 months, then optional CT at 18-24 mo.CT at 3-6 months, then CT at 18-24 months. Recommendations do not apply to lung cancer screening, patients with immunosuppression, or patients with known primary cancer. Dictated by: Dillon Olea M.D. on 03/03/2017 at 17:24 Cardiac Echo Impressions Interpretation Summary The left ventricle is normal in size. The ejection fraction is estimated to be 65-70%. The right ventricle is normal in size and function. There is mild to moderate tricuspid regurgitation. Compared to the prior echo exam, there has been an increase in TR severity. The right ventricular systolic pressure is estimated at 36 mmHg assuming a right atrial pressure of 8 mm Hg. Compared to the prior echo exam, there has been an increase in the severity of pulmonary hypertension. Assessment & Plan Sandra Melchor is a 71-year-old woman with past medical history significant for COPD and is dependent on Trilogy, bipolar disorder , and MAURICE who presented to the [facility] emergency department due to worsening shortness of breath. Acute on chronic hypoxemic hypercarbic respiratory failure secondary to severe COPD exacerbation, present on admission. Ongoing. -Patient has severe COPD at baseline and was put on maximum medical intervention and started on Triology by Dr. Ryan as an outpatient - Likely end stage COPD as Infectious markers negative (PCR, blood cultures), PE studies negative -Palliative care consulted with decision to transition to Hospice; meeting was set up for 03/07 but due to her mentation could not occur - ABG ordered by Dr. Ryan due to mentation but unable to be acquired - Titrate oxygen to 88-95% - Continue Solu-Medrol 125mg IV TID - Continue morphine for air hunger Sinus tachycardia, present on admission. Acute. Resolved. - Likely due to hypoxia as infectious markers are unremarkable - Thyroid markers with low TSH, normal T4 - Echo as above - Continue Metoprolol 25 mg mg bid - Continue Xopenex and Atrovent Chronic issues, present on admission, stable: Bipolar disorder -Continue home medications Chronic pain -Continue home pain medications MAURICE - Continue BiPAP/Triology use as above CODE STATUS: DNR/DNI Disposition: Patient will likely be here throughout the weekend due to her waxing and waning mentation and declining respiratory status. She expressed desire to transition to hospice but until she is able to converse or her DPOA paperwork is acquired this conversation will be postponed. VTE Prophylaxis: Sub-Q Heparin (Unfractionated) VTE Mechanical Devices: Venous Foot Pump Resuscitation Status: DNR/DNI:Do Not Resuscitate/Intubate Attending Statement Patient was also noted to be suffering some degree of encephalopathy, likely secondary to acute on chronic respiratory failure. The patient was seen and examined together with Dr. Welch on 03/07/2017 and I agree with the history, exam and plan as outlined in the note above. . Abdirizak Welch DO Mar 07, 2017 16:42 Lamont Becker MD Mar 07, 2017 17:41 and complexity of treatment plan. Disposition: Transfer to [facility] VTE Prophylaxis: Sub-Q Heparin (Unfractionated) VTE Mechanical Devices: Venous Foot Pump Resuscitation Status: DNR/DNI:Do Not Resuscitate/Intubate Abdirizak Welch DO Mar 07, 2017 16:42
[2017-03-07] MEDS: MethylprednisoLONE Sodium Succinate 62.5 mg/mL 2 mL Inj IVPUSH SCH (17:46)
[2017-03-07] MEDS: HYDROcodone-APAP 7.5-325 mg Tablet PO PRN (18:11)
--- NOTE | 2017-03-07 18:22 | NUR ---
pain/ mentation pt reported severe pain of shoulder and neck. prn norco given per md order. pt alert and minimally able to follow commands. speech mumbly. pt continues to be restless. pt confused to place and time becoming aggitated with further questions. pt tolerating NC at 1L, sating low 90s, for oral care and meds. pt however sob with labored breathing. will continue to monitor.
[2017-03-07 18:23] LABS: BASOPHILS % (AUTO) 0 % (0-3); EOSINOPHILS % (AUTO) 0.1 % (0-5); MONOCYTES % (AUTO) 5.7 % (4-12); Mean Corpuscular Hemoglobin 30.2 pg (27.0-35.0); Mean Corpuscular Volume 89.8 fL (81-100); NEUTROPHILS % (AUTO) 81.1 % (40-74); Platelet Count 332 bil/L (150-400)
[2017-03-07] MEDS: 0.9% Sodium Chloride 1,000 ML IV SCH (21:34)
[2017-03-08] VITALS (12 sets, daily range): BP systolic 126–141; BP diastolic 69–95; PULSE 81–117; RESP 18–24; O2SAT 93–99
[2017-03-08] MEDS: MethylprednisoLONE Sodium Succinate 62.5 mg/mL 2 mL Inj IVPUSH SCH ×2 (01:43→11:03)
[2017-03-08 03:14] LABS: BASOPHILS % (AUTO) 0 % (0-3); EOSINOPHILS % (AUTO) 0.1 % (0-5); MONOCYTES % (AUTO) 4.9 % (4-12); Mean Corpuscular Volume 89.6 fL (81-100); NEUTROPHILS % (AUTO) 83.5 % (40-74); Platelet Count 326 bil/L (150-400)
[2017-03-08] MEDS: Levalbuterol 1.25 mg/0.5mL Inhalation Solution NEB SCH ×4 (07:04→22:44)
[2017-03-08] MEDS: Ipratropium 0.02% 0.5 mg/2.5 mL Inhalation Solution NEB SCH ×3 (07:04→15:26)
--- NOTE | 2017-03-08 07:42 | NUR ---
Mentation/IV Site/NPO Pt was only alert to self and unsure of where she was throughout the content editor until approximately 0630. Pt remained restless when the pt was sleeping and was jumpy when touched. Pt could not follow commands and was NPO and all HS meds were held. was notified about pt's mentation and HS meds being withheld. This AM the pt had twisted self in the IV and the IV site began to leak onto the pt and the bedding. All bedding was changed as well as pt's gown and IV catheter was DC'd intact. Oncoming RN made aware and called IV therapy to help place another IV so that NS @100/hr can be continued.
[2017-03-08] MEDS: Fluticasone 0.05% 15 Spray/2 Gm 16 Gm Nasal Spray NASAL SCH ×2 (11:03→20:05)
[2017-03-08] MEDS: Azithromycin Inj 500 MG in Dextrose 5% w/Vial Mate 250 ML IV SCH (11:03)
[2017-03-08] MEDS: Nystatin 100,000 Unit/mL 5 mL Suspension PO SCH ×4 (11:04→23:10)
[2017-03-08] MEDS: OXcarbazepine 300 mg Tablet PO SCH ×2 (11:05→20:06)
[2017-03-08] MEDS: HYDROcodone-APAP 7.5-325 mg Tablet PO PRN ×2 (11:07→20:06)
--- NOTE | 2017-03-08 12:02 | PROG NOTE ---
[address] [address] PROGRESS NOTE PATIENT: LISA QUINTERO : 1945 MR#: [id number] ADMIT: 03/03/2017 JOB ID: [id number] DATE: 03/08/2017 PULMONARY PROGRESS NOTE: IDENTIFICATION: The patient is a 71-year-old woman with severe COPD, FEV1 38% admitted with a COPD exacerbation. INTERVAL HISTORY: She is more alert, conversant today. She is wearing the Trilogy currently, but tells me her dyspnea is much better. She is on room air on the Trilogy. Oxygen requirement is down to 1 L when she is off the Trilogy. REVIEW OF SYSTEMS: Denies fevers, chills, sweats, or chest pain. PHYSICAL EXAMINATION: Vital signs reviewed, afebrile, pulse 112, respirations 24, BP 141/95, sats 94% on room air on the Trilogy. General she is lying in bed with the Trilogy on, breathing comfortably at rest. Speaking full sentences. She is oriented. Chest is clear to auscultation. LABORATORIES: Reviewed. ASSESSMENT AND RECOMMENDATIONS: 1. Chronic obstructive pulmonary disease exacerbation. 2. Acute on chronic hypoxic respiratory failure. 3. Severe chronic obstructive pulmonary disease with FEV1 38% and DLCO 23%. 4. Bipolar disorder. She appears to be doing significantly better today compared to the last couple of days. She is currently on her Trilogy and is also getting Solu-Medrol 125 mg IV q.8 and azithromycin daily. I would complete five days of azithromycin and then stop this. I am going to decrease her Solu-Medrol dose to 125 mg IV daily for the next couple of days and then we can start to cut back further. Continue with the scheduled DuoNeb. I am hoping we can give her more and more breaks off the Trilogy during the day and eventually get her to a point where she is only needing this at night and with naps during the day. Dr. Valero takes over the pulmonary service tomorrow. With regards to her home regimen, she should be on an inhaled corticosteroid/LABA combination-either Symbicort or Advair, plus Spiriva plus albuterol nebs p.r.n. plus oxygen and Trilogy. She already has prescriptions for Symbicort and Spiriva, but if this needs to be switched to Advair, please do so.
--- NOTE | 2017-03-08 13:17 | NUR ---
respiratory/mentation/GI pt alert and oriented, making needs known. pt tolerating being off triology for po intake. maintaining saturation in the low 90s. pt able to feed self with set up. Thorough oral care given post meal for replace of triology. pt reported feeling bloated and constipated. prn senna given. will continue to monitor.
[2017-03-08] MEDS: 0.9% Sodium Chloride 1,000 ML IV SCH (15:30)
--- NOTE | 2017-03-08 16:29 | NUR ---
Social Work- Multidisciplinary Rounds Pt discussed in rounds. HNW BASIC COMBATANT SWIMMER came to see pt yesterday for a hospice infovisit and pt was unable to participate in the conversation. MD, Palliative, and BASIC COMBATANT SWIMMER will be having conversation with DPOA regarding pt's plan of care and end of life. SW unable to see pt today due to high census. SW will continue to follow. Denia Andrea BASIC COMBATANT SWIMMER
--- NOTE | 2017-03-08 18:11 | PCM.PNMED ---
Subjective Date of Service Mar 08, 2017 Subjective Overnight Events. No acute events overnight. Patient resting in bed comfortably and in no acute distress with BiPAP in place. the patient was initially completely unresponsive throughout the night and this morning. During multi-disciplinary rounds the woke up. she was Alert and oriented x4 and surprisingly insightful. She clarified code status and DPOA. She denies shortness of breath, chest pain, or pain of any sort, nausea, abdominal pain. She reports increased thirst and dry mouth. Exam Vital Signs Vital Sign - Last Date Time Temp Pulse Resp B/P Pulse Ox O2 Delivery O2 Flow Rate FiO2 03/08/17 07:06 114 24 94 BiPAP 21 03/08/17 03:51 36.6 126/86 4.00 Intake and Output 03/07/17 03/07/17 03/08/17 Cumulative From/Thru 15:00 23:00 07:00 03/03/17 11:37 - 03/08/17 05:37 Intake Total 250 ml 762 ml 5263 ml Output Total 425 ml 6075 ml Balance -175 ml 762 ml -812 ml Intake Oral 0 ml 0 ml 2429 ml IV Total 250 ml 762 ml 2834 ml Output Urine Total 425 ml 6075 ml # Voids 3 2 7 # Bowel Movements 0 4 Exam General: Frail elderly woman in a hospital bed, drowsy, breathing with some difficulty HEENT: Normocephalic, atraumatic. External ears without defect. BiPAP mask on face. Patient would not open eyes to examination. Neck: Supple with full range of motion. No jugular venous distension or thyromegaly. Cardiovascular: Regular rate and rhythm with no murmurs, rubs, or gallops appreciated Pulmonary: Tachypneic, Diffuse crackles throughout. Increased work of breathing observed. Abdomen: Bowel tones present. Soft, mildly distended. No hepatosplenomegaly appreciated. Extremities: No clubbing, cyanosis, edema, or lymphadenopathy appreciated. Skin: Normal temperature, turgor, and texture; no rash, ulcers Neurological: Cranial nerves grossly intact. Normal muscle strength, tone, and bulk. Reflexes, coordination, and sensory function within normal limits. No known gait impairment. Psychiatric: Normal mood and affect. Alert and oriented to person, place, and time. IVs and Medications Medications Reviewed: Medications were reviewed in detail Lab and Diagnostics Result Diagram: 03/08/17 0255 03/08/17 0255 X-Rays, CTs and MRIs X-RAY CHEST ONE VIEW, PORTABLE IMPRESSION: 1. Pulmonary emphysema. 2. Apparent vascular shunting to the upper lobes could reflect elevated pulmonary venous pressure but indeterminate. 3. Scar or atelectasis along the left major fissure is unchanged. 4. Increased density at the left base medially could represent a new area of pneumonia Dictated by: Jeffry Xiong M.D. on 03/03/2017 at 13:15 CT ANGIO CHEST PULMONARY EMBOLISM IMPRESSION: 1. No acute process. No pulmonary embolus. 2. Coronary artery disease. 3. Emphysema. 4. Bilateral lung nodules as described above; followup is recommended as below. 5. Presumed subpleural scarring within the left upper lobe laterally. Fleischner Society criteria for SOLID lung nodule followup. Nodule size (mm)Low-risk patientHigh-risk patient<6 (single or multiple)No routine followup.Optional CT at 12 months. 6-8 (single or multiple)CT at 6-12 months, then optional CT at 18-24 mo.CT at 6-12 months, then CT at 18-24 months. >8 (single)CT, PET-CT, or biopsy at 3 months. Same as for low-risk pts. >8 (multiple)CT at 3-6 months, then optional CT at 18-24 mo.CT at 3-6 months, then CT at 18-24 months. Recommendations do not apply to lung cancer screening, patients with immunosuppression, or patients with known primary cancer. Dictated by: Dillon Olea M.D. on 03/03/2017 at 17:24 Cardiac Echo Impressions Interpretation Summary The left ventricle is normal in size. The ejection fraction is estimated to be 65-70%. The right ventricle is normal in size and function. There is mild to moderate tricuspid regurgitation. Compared to the prior echo exam, there has been an increase in TR severity. The right ventricular systolic pressure is estimated at 36 mmHg assuming a right atrial pressure of 8 mm Hg. Compared to the prior echo exam, there has been an increase in the severity of pulmonary hypertension. Assessment & Plan Sandra Briggs is a 71-year-old woman with past medical history significant for COPD and is dependent on Trilogy, bipolar disorder , and MAURICE who presented to the [facility] emergency department due to worsening shortness of breath. Acute on chronic hypoxemic hypercarbic respiratory failure secondary to severe COPD exacerbation, present on admission. Improving - Patient has severe COPD at baseline and was put on maximum medical intervention and started on Triology by Dr. Ryan as an outpatient - Likely end stage COPD as Infectious markers negative (PCR, blood cultures), PE studies negative - Palliative care consulted with decision to transition to Hospice; meeting was set up for 03/07 but due to her mentation could not occur - Titrate oxygen to 88-95% - Dr. Ryan with pulmonology consulted, recommendations greatly appreciated. - Continue Solu-Medrol 125mg IV TID - Contine Atrovent, Xopenex, flonase, - Patient has improved greatly. Revisit goals of care with her tomorrow. Sinus tachycardia, present on admission. Acute. Resolved. - Likely due to hypoxia as infectious markers are unremarkable - Thyroid markers with low TSH, normal T4 - Echo as above - Continue Metoprolol 25 mg mg bid - Continue Xopenex and Atrovent Chronic issues, present on admission, stable: Bipolar disorder -Continue home medications Chronic pain -Continue home pain medications MAURICE - Continue BiPAP/Triology use as above CODE STATUS: DNR/DNI Acetaminophen for mild pain when necessary. Bowel regimen Senna and MiraLAX scheduled and PRN. Zofran when necessary for nausea and vomiting. SubQ heparin held for now. SCDs in place. Social: She reports DOPA is in fact Mr. 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 He owns a [employer] business. Disposition: Patient will likely be here throughout the weekend due to her waxing and waning mentation and declining respiratory status. She expressed desire to transition to hospice but until she is able to converse or her DPOA paperwork is acquired this conversation will be postponed. Pain Evaluation: Adequate Pain Control VTE Prophylaxis: Sub-Q Heparin (Unfractionated) VTE Mechanical Devices: Venous Foot Pump Resuscitation Status: DNR/DNI:Do Not Resuscitate/Intubate Attending Statement The patient was seen and examined together with Dr. Macias on 03/08/2017 and I agree with the history, exam and plan as outlined in the note above. . KELY MACIAS DO Mar 08, 2017 07:24 Lamont Becker MD Mar 10, 2017 10:11
[2017-03-09] VITALS (12 sets, daily range): BP systolic 109–153; BP diastolic 76–89; PULSE 78–95; RESP 16–24; O2SAT 80–95
[2017-03-09] MEDS: 0.9% Sodium Chloride 1,000 ML IV SCH ×3 (01:20→21:20)
--- NOTE | 2017-03-09 05:12 | NUR ---
Mentation/Nausea Pt was AOx3 throughout the lieutenant shift supervisor and was able to sat between 88-95% on RA while awake. Pt did have nausea at approximately 0500 and was given IVP zofran and trilogy mask was removed until pt's nausea was resolved. During pt's episode of nausea and dry heave pt did need 1L O2 NC to sat around 92-93%.
[2017-03-09] MEDS: Ipratropium 0.02% 0.5 mg/2.5 mL Inhalation Solution NEB SCH ×4 (07:19→19:25)
[2017-03-09] MEDS: Levalbuterol 1.25 mg/0.5mL Inhalation Solution NEB SCH ×4 (07:19→19:25)
[2017-03-09 07:52] LABS: BASOPHILS % (AUTO) 0.1 % (0-3); EOSINOPHILS % (AUTO) 0.1 % (0-5); MONOCYTES % (AUTO) 9.3 % (4-12); Mean Corpuscular Hemoglobin 30.8 pg (27.0-35.0); Mean Corpuscular Volume 91.1 fL (81-100); NEUTROPHILS % (AUTO) 73.4 % (40-74); Platelet Count 297 bil/L (150-400)
[2017-03-09] MEDS: MethylprednisoLONE Sodium Succinate 62.5 mg/mL 2 mL Inj IVPUSH SCH (10:33)
[2017-03-09] MEDS: Azithromycin Inj 500 MG in Dextrose 5% w/Vial Mate 250 ML IV SCH (10:33)
--- NOTE | 2017-03-09 10:37 | NUR ---
Social Work Note: Multidisciplinary Rounds Pt was discussed in AM rounds today, per MD pt is not medically ready for discharge at this time. Per MD pt mentation has improved and pt is now more alert and oriented. Pt is also ambulating in her room. Palliative care is following and plans to notify [facility] of pt improvement so they can attempt an informational visit again. SW to continue to follow for discharge planning needs and follow up with pt regarding initial assessment. No MD orders identified at this time. SW to continue to follow. DANIEL Sousa
[2017-03-09] MEDS: Nystatin 100,000 Unit/mL 5 mL Suspension PO SCH ×4 (10:50→21:43)
[2017-03-09] MEDS: OXcarbazepine 300 mg Tablet PO SCH ×2 (10:51→21:44)
[2017-03-09] MEDS: Fluticasone 0.05% 15 Spray/2 Gm 16 Gm Nasal Spray NASAL SCH ×2 (10:52→21:43)
[2017-03-09] MEDS: HYDROcodone-APAP 7.5-325 mg Tablet PO PRN ×2 (10:52→21:44)
--- NOTE | 2017-03-09 10:57 | PCM.PNMED ---
Subjective Date of Service Mar 09, 2017 Subjective Sandra Briggs is a 71-year-old woman with past medical history significant for COPD and is dependent on Trilogy, bipolar disorder , and MAURIEC who presented to the [facility] emergency department due to worsening shortness of breath Hospital day 6. Trilogy mask taken off overnight while patient was experiencing nausea. Patient placed on 1L NC. Currently patient c/o CP that onset last night. Patient describes it as a pressure. She continues to have SOB. Denies any other symptoms at this time. ROS reviewed are negative unless otherwise noted. Exam Vital Signs Vital Sign - Last Date Time Temp Pulse Resp B/P Pulse Ox O2 Delivery O2 Flow Rate FiO2 03/09/17 10:22 Supplement Oxygen 03/09/17 10:22 36.6 82 24 129/84 94 1.00 03/08/17 22:44 21 Intake and Output 03/08/17 03/08/17 03/09/17 Cumulative From/Thru 15:00 23:00 07:00 03/03/17 11:37 - 03/09/17 05:25 Intake Total 886 ml 337 ml 6486 ml Output Total 6075 ml Balance 886 ml 337 ml 411 ml Intake Oral 320 ml 240 ml 2989 ml IV Total 566 ml 97 ml 3497 ml Output Urine Total 6075 ml # Voids 3 2 12 # Bowel Movements 0 4 Exam Constitutional: Lethargic, will open eyes to voice and responds with minimal moans. No acute distress. Heart: Regular Rate and Rhythm. No edema Eyes: pupils round and reactive. EOMI. Lungs: Diminished breath sounds throughout with poor inspiratory and expiratory effort. No rales or rhonchi. Patient on 1L NC. ABD: Soft, NT. Bowel Sounds present. Skin: Warm, Dry Neuro: CN II-XII intact Psych: Unable to assess secondary to patient status. IVs and Medications IV Fluids NS 1L 100ml/hr Azithromycin 500mg 250ml/hr Medications Reviewed: Medications were reviewed in detail Medications Azithromycin 500mg IV in NS 250ml/hr - Day 3 Lab and Diagnostics Item Value Date Time Mean Corpuscular Volume 91.1 fL 03/09/17 0738 Hemoglobin 13.8 g/dL 03/09/17 0738 Red Blood Count 4.48 mil/mm3 03/09/17 0738 Mean Corpuscular Hemoglobin 30.8 pg 03/09/17 0738 Mean Corpuscular Hemoglobin Concent 33.8 % 03/09/17 0738 Red Cell Distribution Width 13.2 % 03/09/17 07 Neutrophils (%) (Auto) 73.4 % 03/09/17 0738 Lymphocytes (%) (Auto) 16.4 % 03/09/17 0738 Monocytes (%) (Auto) 9.3 % 03/09/17 07 Eosinophils (%) (Auto) 0.1 % 03/09/17 07 Basophils (%) (Auto) 0.1 % 03/09/17 07 Troponin T 0.010 ug/L 03/09/17 0738 Estimat Glomerular Filtration Rate 146 mL/min 03/09/17 0738 Calcium Level 9.0 mg/dL 03/09/17 0738 Total Bilirubin 0.2 mg/dL 03/09/17 0738 Aspartate Amino Transf (AST/SGOT) 17 U/L 03/09/17 0738 Alanine Aminotransferase (ALT/SGPT) 31 U/L 03/09/17 0738 Alkaline Phosphatase 102 U/L 03/09/17 0738 Total Protein 7.3 g/dL 03/09/17 0738 Albumin 4.0 g/dL 03/09/17 0738 D-Dimer 1.11 mg/L FEU H 03/03/17 1309 Urine Legionella pneumophilia Ag Negative 03/03/17 2245 Result Diagram: 03/09/17 0738 03/09/17 0738 Microbiology Respiratory PCR negative Blood cultures negative after five days. X-Rays, CTs and MRIs X-RAY CHEST ONE VIEW, PORTABLE IMPRESSION: 1. Pulmonary emphysema. 2. Apparent vascular shunting to the upper lobes could reflect elevated pulmonary venous pressure but indeterminate. 3. Scar or atelectasis along the left major fissure is unchanged. 4. Increased density at the left base medially could represent a new area of pneumonia Dictated by: Jeffry Xiong M.D. on 03/03/2017 at 13:15 CT ANGIO CHEST PULMONARY EMBOLISM IMPRESSION: 1. No acute process. No pulmonary embolus. 2. Coronary artery disease. 3. Emphysema. 4. Bilateral lung nodules as described above; followup is recommended as below. 5. Presumed subpleural scarring within the left upper lobe laterally. Fleischner Society criteria for SOLID lung nodule followup. Nodule size (mm)Low-risk patientHigh-risk patient<6 (single or multiple)No routine followup.Optional CT at 12 months. 6-8 (single or multiple)CT at 6-12 months, then optional CT at 18-24 mo.CT at 6-12 months, then CT at 18-24 months. >8 (single)CT, PET-CT, or biopsy at 3 months. Same as for low-risk pts. >8 (multiple)CT at 3-6 months, then optional CT at 18-24 mo.CT at 3-6 months, then CT at 18-24 months. Recommendations do not apply to lung cancer screening, patients with immunosuppression, or patients with known primary cancer. Dictated by: Dillon Olea M.D. on 03/03/2017 at 17:24 12-lead ECG No changes from previous study on 03/03. Cardiac Echo Impressions Interpretation Summary The left ventricle is normal in size. The ejection fraction is estimated to be 65-70%. The right ventricle is normal in size and function. There is mild to moderate tricuspid regurgitation. Compared to the prior echo exam, there has been an increase in TR severity. The right ventricular systolic pressure is estimated at 36 mmHg assuming a right atrial pressure of 8 mm Hg. Compared to the prior echo exam, there has been an increase in the severity of pulmonary hypertension. Assessment & Plan Sandra Briggs is a 71-year-old woman with past medical history significant for COPD and is dependent on Trilogy, bipolar disorder , and MAURICE who presented to the [facility] emergency department due to worsening shortness of breath. Patient is being treated for exacerbation of end stage COPD. Acute on chronic hypoxemic hypercarbic respiratory failure secondary to severe COPD exacerbation, present on admission. Improving - Patient has severe COPD at baseline and was put on maximum medical intervention and started on Triology by Dr. Ryan as an outpatient - Likely end stage COPD as Infectious markers negative (PCR, blood cultures), PE studies negative - Palliative care consulted with decision to transition to Hospice; awaiting word from social work for placement as patient - Titrate oxygen to 88-95% (Update - patient becoming lethargic on 1L NC O2, likely retaining CO2. We will place her back on Trilogy) - Dr. Ryan with pulmonology following - Azithromycin 500mg 250ml/hr - Decrease Solu-Medrol from 125mg IV TID to 125mg IV daily - Contine Atrovent, Xopenex, flonase Encephalopathy -Patient has altered mental status most likely secondary to increased CO2 retention -Patient is to use Trilogy throughout the day in order to decrease the patient' s acidosis level -We will reassess throughout the day Sinus tachycardia, present on admission. Acute. Resolved. - Likely due to hypoxia as infectious markers are unremarkable - Thyroid markers with low TSH, normal T4 - Continue Metoprolol 25 mg mg bid - Continue Xopenex and Atrovent Chest Pain. Acute. Resolved -Troponin 0.01 -EKG showed no acute changes from 03/03 study - Chest pain likely secondary respiratory muscle deconditioning and fatigue after being off of high flow oxygen throughout the night. Will monitor. Leukocytosis - WBC 15 today with normal neutrophil count. (possibly increased from steroids vs. infection) - Repeat CBC tomorrow morning Chronic issues, present on admission, stable: Bipolar disorder -Continue home medications Chronic pain -Continue home pain medications MAURICE - Continue BiPAP/Triology use as above CODE STATUS: DNR/DNI Acetaminophen for mild pain when necessary. Bowel regimen Senna and MiraLAX scheduled and PRN. Zofran when necessary for nausea and vomiting. SubQ heparin held for now. SCDs in place. Social: She reports DOPA is in fact Mr. 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 He owns a [employer] business. Disposition: Patient will likely be here a few more days due to placement issues to SNF and Hospice requirements. She expressed desire to transition to hospice but until she is able to converse or her DPOA paperwork is acquired this conversation will be postponed. VTE Prophylaxis: Sub-Q Heparin (Unfractionated) VTE Mechanical Devices: Venous Foot Pump Resuscitation Status: DNR/DNI:Do Not Resuscitate/Intubate Attending Statement The patient was seen and examined together with Dr. Pradhan on 03/09/2017 and I have added additional information to the note above. Puneet Pradhan DO Mar 09, 2017 10:57 Melinda Maldonado DO Mar 12, 2017 17:55
--- NOTE | 2017-03-09 15:12 | NUR ---
Palliative care note D/A: Phone call this am to Isela to discuss plan, as pt has transferred floor. Note that pt is M'care/M'caid and has indicated to this worker that she would like SNF. Also noted that efforts are underway to connect pt with [facility] so that she can potentially go SNF/Hospice. Later, discuss with Gertrude of [facility]. She arranges for 0915 [facility] info visit for 03/10/19. Pt not currently on her Trilogy and there is some thought that perhaps she is a Co2 retainer and if she goes back on her Trilogy today, mentation may be more consistent tomorrow. Gertrude also notes that Dr. Hightower has indicated that she feels that pt will be able to use bipap with suction. She is however, open to discussing other means of meeting pt needs should pulmonary wish to call her to discuss. Msg left for Isela re: above. Dr. Ly aware as well. Rhea Strickland [facility], CCM
--- NOTE | 2017-03-09 15:18 | PCM.PALLBR ---
Palliative Care Recommendation 71-year-old female with severe COPD (essentially bedridden with severe exertional dyspnea recently) admitted with exacerbation. Past history also significant for bipolar disease, significant anxiety, severe DJD with chronic pain. Palliative medicine consulted to assist patient in determination of goals of care and symptom management. Summary of palliative recommendations: -Symptom management (Pain/other)- continue MS IR 5 mg PO Q 4 hr prn dyspnea/air hunger. Depending on response, adjust dosing and frequency. -DPOA/Advanced Directives/POLST- She has said that her neighbor/landlord Adrian Jeronimo is to be her POA and that she has an associate attorney downtown who is drawing up paperwork at this time. She does not want her sons involved at all. She is DO NOT RESUSCITATE/DO NOT INTUBATE. We discussed potential need for placement in SNF and she was quite open to this as an option. We also discussed hospice (with which she is familiar as hospice was involved when her partner in 2016) and she was very interested in a hospice informational visit. Attempts at hospice visit have had to be canceled over the last several days because of decreased level of consciousness. Will attempt once again tomorrow. Hospice has reviewed her case and agrees with enrolling her, though would prefer transitioning from Trilogy device to BiPAP with suctioning prn when they assume care (will review with pulmonary consultants) When I asked if she would want to return to the hospital for future care, she replied "probably not". Will plan on completing POLST with her active wishes prior to discharge. -Family/emotional support- limited, and becoming more so as her disability has progressed. She has 3 sons living out of town from whom she is estranged and she does not want them involved. -Spiritual support- hospital manager service desk following Patient Goals: 1. Patient wants to be told the truth about her illness, even if it is unpleasant. 2. Patient would like to be told prognosis when it can be predicted, to better guide treatment decisions. 3. Patient would choose quality of life over quantity of life, and defines quality as being able to breathe comfortably Additional Medical Diagnoses with primary management by Hospitalist team include : #Acute on chronic hypoxemic respiratory failure secondary to severe COPD possible exacerbation, present on admission, active # Sinus tachycardia #Bipolar disorder #Chronic pain Problems: End of Life Preferences DO NOT RESUSCITATE/DO NOT INTUBATE Goals of Care Comfort and stabilization of respiratory status Disposition Probable SNF with hospice Resuscitation Status Resuscitation Status: DNR/DNI:Do Not Resuscitate/Intubate POLST Updates/Changes Previous POLST?: No . Pain: None Symptom management: Drowsiness/sleepiness, Dyspnea Total time 25 minutes; >50% face to face with patient, providing counselling regarding plans and recommendations, and in care coordination with her medical teams. Palliative Brief Note Date of Service Mar 09, 2017 . Returned to reevaluate patient. Prior to visiting, reviewed her updated records in the EMR in detail, spoke with her nurse and with her hospitalist. When I arrived, she was sleeping in bed. Difficult to arouse and ultimately I could only get her to briefly open her eyes, mutter 1 or 2 words and then she will go back to sleep. Indicated that she had no significant pain or dyspnea or nausea. On exam, elderly woman lying in bed. Vital signs noted. Skin warm and dry, pale. Head and neck exam without acute changes. Lungs with decreased breath sounds diffusely but no wheezes. Heart sounds regular. Abdomen rounded, without tenderness or evidence of peritoneal signs. Extremities with trace edema. Lab and imaging studies reviewed as well as notes from her consulting specialists over the last several days. Reddy Ly MD Mar 09, 2017 15:18
--- NOTE | 2017-03-09 16:24 | NUR ---
Social Work Note: Attempted Initial Assessment SW attempted to meet with pt at bedside to discuss discharge planning and discuss potential D/C to SNF per MD order. Pt was not able to stay awake to complete a meaningful conversation. Pt did provide permission for [employer] to contact her DPOA Adrian. SW to follow up with pt DPOA and/or pt if she becomes more alert tomorrow morning. SW to continue to follow. DANIEL Sousa
--- NOTE | 2017-03-09 18:33 | NUR ---
Mentation 929 - Discussed her care with Dr. Maldonado, Dr. Snyder, and the rest of the multidisciplinary care team during morning rounds. There were hopes that with her improved mentation today she would be able to have a discussion about Hospice. 103 - Went in the room to assess her and give her the AM medication. Noted that she was sleepy and difficult to awaken. After shaking her shoulder or moving her arm for a blood pressure she would groan, but did not open her eyes or say any words after repeated tries. Unable to give her her by mouth medication at that time due to the aspiration risk. Notified Dr. Pradhan. She woke up a few minutes later complaining of pain in her "back, muscles, and everywhere" and was requesting pain medication. She was able to take all of her by mouth medication and was given 1 tablet of [place] per Dr. Pradhan consultation. 1724 - Dr. Snyder came by for safety rounds and was updated on her care and condition. Care continues.
--- NOTE | 2017-03-09 19:16 | PROG NOTE ---
[address] [address] PROGRESS NOTE PATIENT: LISA QUINTERO : 1945 MR#: [id number] ADMIT: 03/03/2017 JOB ID: [id number] DATE: 03/09/2017 PROBLEM: Acute exacerbation of COPD. SUBJECTIVE: The patient appeared to be asleep. Went back later in the day. Still seemed to be asleep. Woke easily but then declined to speak with us stating that she did not want to talk with us or interact any way. Chest showed fair breath sounds. Heart: Regular rhythm. O2 sat on unknown concentration of oxygen was 94%. LABORATORY DATA: Noted with white cell count of 15,400 and rising, with normal differential. Hemoglobin stable at 13.8. Platelet count somewhat decreased to 297,000. Sodium 133, potassium 3.5, chloride 95, CO2 is 23, BUN 29, creatinine 0.58. Calcium 9 with albumin of 4. Total bilirubin 0.2, AST 17, ALT 31, alkaline phos 102. ASSESSMENT: Acute exacerbation of chronic obstructive pulmonary disease. Seems to be doing reasonably well. Unfortunately, she refuses to interact with me. Lungs sound okay, oxygenation okay. Mental status seems relatively clear, though it may be hard to tell. PLAN: Given the superficial nature of her interaction, would merely continue the current regimen. Hopefully, she will be more tractable tomorrow.
[2017-03-10] VITALS (10 sets, daily range): BP systolic 101–157; BP diastolic 69–105; PULSE 75–92; RESP 18–36; O2SAT 90–96
[2017-03-10 02:42] LABS: BASOPHILS % (AUTO) 0.2 % (0-3); EOSINOPHILS % (AUTO) 0.2 % (0-5); MONOCYTES % (AUTO) 8.6 % (4-12); Mean Corpuscular Hemoglobin 30.9 pg (27.0-35.0); Mean Corpuscular Volume 90.6 fL (81-100); Platelet Count 247 bil/L (150-400)
--- NOTE | 2017-03-10 05:42 | NUR ---
Pain / Mentation Pt awake spontaneously at HS assessment; able to answer questions, follow commands, and verbalize needs appropriately. Alert to self, initially identified location as [place], but corrected to "Oh, that's right. [place]." Unable to accurately state current year. Able to take all HS medications, including stool softeners, as pt reported feeling constipated. Pt reported pain at HS at 6/10 to back, and reported acceptable pain goal as 4/10. Able to rest throughout shift between interventions. Turns Q4H as tolerated implemented for prophylaxis of skin breakdown. VSS, tele SR 70s. Addendum: 03/10/17 at 0547 by CATALINA RICE RN Pt on Trilogy throughout majority of shift without oxygen bleed, SpO2 90-95%; 1L NC utilized for oral intake with SpO2 93-97%.
[2017-03-10] MEDS: 0.9% Sodium Chloride 1,000 ML IV SCH ×2 (07:20→19:30)
[2017-03-10] MEDS: Levalbuterol 1.25 mg/0.5mL Inhalation Solution NEB SCH ×4 (07:38→19:52)
[2017-03-10] MEDS: Ipratropium 0.02% 0.5 mg/2.5 mL Inhalation Solution NEB SCH ×4 (07:38→19:52)
[2017-03-10] MEDS: Fluticasone 0.05% 15 Spray/2 Gm 16 Gm Nasal Spray NASAL SCH ×2 (08:51→20:30)
[2017-03-10] MEDS: Nystatin 100,000 Unit/mL 5 mL Suspension PO SCH ×4 (08:51→22:00)
[2017-03-10] MEDS: Azithromycin Inj 500 MG in Dextrose 5% w/Vial Mate 250 ML IV SCH (08:51)
[2017-03-10] MEDS: MethylprednisoLONE Sodium Succinate 62.5 mg/mL 2 mL Inj IVPUSH SCH (08:52)
[2017-03-10] MEDS: OXcarbazepine 300 mg Tablet PO SCH ×2 (08:52→21:00)
--- NOTE | 2017-03-10 14:31 | NUR ---
Palliative care note D/A: Dr. Ly has worked with pt today on POLST. Pt also noted to have signed on to Hospice in her visit with Janie at 0915. Use of Trilogy assisted pt in remaining more consistently alert so that she could participate in planning. Pt notes that her goals and conditions are severe COPD, comfort and quality of remaining life. She elects DNAR with comfort measures only and she prefers no hospital transfer. She also elects to have use of antibiotics to be determined when infection occurs and does not wish to have medically indicated nutrition by tube. POLST is scanned and sent to Gertrude at [facility], via email. P: Palliative care to follow. Rhea LEVIN, CCM
--- NOTE | 2017-03-10 14:31 | NUR ---
Social Work Note: Continued Discharge Planning//Multidisciplinary Rounds Data& Assessment: Pt was discussed in AM rounds today, per MD pt is medically stable. Hospice met with pt at bedside this morning for informational visit, pt signed consents. Pt wishes to go to SNF with hospice. SW provided SNF list and discussed preferences with pt. Pt wishes to stay locally in [place]. Apparently pt friend Cuba has heard good things about [facility] and pt would like this to be her preferred SNF. ALYSON called and spoke with Willy for referral, access provided. Willy will review pt for potential admit. Pt will not be able to open with Hospice with her Trilogy machine. Pt understands that once she officially opens with Hospice, she will transition to Bibpap. Hospice opening date is unclear at this time. Pt denies any other needs at this time. SW to continue to follow. Plan: Anticipated discharge to [facility] with Hospice to open pending acceptance. Pt denies any other needs at this time. ALYSON to continue to follow. DANIEL Sousa
--- NOTE | 2017-03-10 14:34 | PCM.PALLBR ---
Palliative Care Recommendation 71-year-old female with severe COPD (essentially bedridden with severe exertional dyspnea recently) admitted with exacerbation. Past history also significant for bipolar disease, significant anxiety, severe DJD with chronic pain. Palliative medicine consulted to assist patient in determination of goals of care and symptom management. Summary of palliative recommendations: -Symptom management (Pain/other)- continue MS IR 5 mg PO Q 4 hr prn dyspnea/air hunger. Depending on response, adjust dosing and frequency. Hospice has reviewed her case and agrees with enrolling her, though would prefer transitioning from Trilogy device to BiPAP with suctioning prn when they assume care -DPOA/Advanced Directives/POLST- She has said that her neighbor/landlord Adrian Jeronimo is to be her POA and that she has an research attorney downtown who is drawing up paperwork at this time. She does not want her sons involved at all. She is DO NOT RESUSCITATE/DO NOT INTUBATE. She will be transitioning to hospice care at a [id number]. When I asked if she would want to return to the hospital for future care, she replied "probably not". New POLST completed today consistent with hospice/comfort care. Original and 2 copies in her hospital chart and one copy to the palliative office -Family/emotional support- limited, and becoming more so as her disability has progressed. She has 3 sons living out of town from whom she is estranged and she does not want them involved. -Spiritual support- hospital antique finisher following Patient Goals: 1. Patient wants to be told the truth about her illness, even if it is unpleasant. 2. Patient would like to be told prognosis when it can be predicted, to better guide treatment decisions. 3. Patient would choose quality of life over quantity of life, and defines quality as being able to breathe comfortably Additional Medical Diagnoses with primary management by Hospitalist team include : #Acute on chronic hypoxemic respiratory failure secondary to severe COPD possible exacerbation, present on admission, active # Sinus tachycardia #Bipolar disorder #Chronic pain Problems: End of Life Preferences DO NOT RESUSCITATE/DO NOT INTUBATE Goals of Care Comfort and stabilization of respiratory status Disposition SNF with hospice Resuscitation Status Resuscitation Status: DNR/DNI:Do Not Resuscitate/Intubate POLST Updates/Changes Previous POLST?: No POLST Last Review Date: Mar 10, 2017 Antibiotics: Determine Use or Limitations Artificially Admin Nutrition: No Artifical Nutrition by Tube POLST Discussed with: Patient POLST Review Outcome: New Form Completed . Advanced Care Planning Address: POLST, Comfort care Pain: None Symptom management: Drowsiness/sleepiness, Dyspnea Total time 55 minutes; >50% face to face with patient, providing counselling regarding plans and recommendations, and in care coordination with her medical teams. Of the above total time, 20 minutes counseling for advanced care planning with the patient reviewing end of life care wishes and completing a new POLST copies to: Sandra Talavera MD Palliative Brief Note Date of Service Mar 10, 2017 . Returned to reevaluate the patient twice today- prior to visiting, reviewed her status with her bedside nurse and reviewed her updated records in the EMR. When I arrived early in the day, she was awake, answered questions appropriately. Later in the day she was more drowsy but still responded to questions but then drifted back to sleep quickly. In the morning she was wearing nasal cannula oxygen, in the afternoon her Trilogy mask. She was seen by hospice this morning and signed on- case management is not working on SNF placement. On exam, frail, elderly woman lying in bed. Skin is pale, warm and dry with hair very thin. Lungs with diminished breath sounds diffusely but no crackles or wheezes. Heart sounds regular. Abdomen soft, rounded, without tenderness or peritoneal signs. No pitting edema. Reddy Ly MD Mar 10, 2017 14:34
--- NOTE | 2017-03-10 17:21 | NUR ---
spiritual care: follow caring visit. pt seemed to be struggling with comfort measures. relayed message to nursing. Pt scientology, earlier described her friendships at [employer], and will continue to receive eucharistic visitors
--- NOTE | 2017-03-10 17:49 | NUR ---
Friends, Comfort Care Measures 0930 - Discussed her care with Dr. Maldonado, Dr. Snyder, and the rest of the multidisciplinary care team during morning rounds. Notified them of her blood pressure of 157/105. The plan was to have her sign the hospice consent per her wishes and arrange for a SNF to accept her. [id number] - Cuba, her friend, stopped by to see her and was given an update in the patient's presence. He said that she has several children that she has expressed wishes not to be notified of her illness until her passing. He said he would like to make sure that her Adrian, her DPOA, gets her address book (which is in her possession now) so that he can contact her children at the time of her passing. 2631 - Amanda, her friend, also stopped by and was given an update after the patient consented. She said that she is her caregiver. 1417 - Dr. Ly stopped by and said he would place her on comfort care and discontinue some of her medication. 1714 - Dr. Snyder stopped by for safety rounds and was updated on her care/condition. Care continues.
--- NOTE | 2017-03-10 18:16 | PCM.PNMED ---
Subjective Date of Service Mar 10, 2017 Subjective No acute events overnight. Patient pain 6/10. Social workers and Palliative care were unable to speak with the patient as she was unarousable yesterday however today the patient is now back to her baseline and is scheduled to have a meeting with both palliative care and hospice later today to discuss goals of care. Patient has no complaints at this time. Patient laying in bed comfortably. Talking for a long period of time fatigues patient and makes her short of breath however this has improved significantly. ROS negative unless otherwise noted above. Exam Vital Signs Vital Sign - Last Date Time Temp Pulse Resp B/P Pulse Ox O2 Delivery O2 Flow Rate FiO2 03/10/17 16:56 36.6 86 20 157/99 93 03/10/17 16:09 Trilogy 03/10/17 07:39 1.00 03/08/17 22:44 21 Intake and Output 03/09/17 03/09/17 03/10/17 Cumulative From/Thru 15:00 23:00 07:00 03/03/17 11:37 - 03/10/17 06:59 Intake Total 150 ml 492 ml 7128 ml Output Total 6075 ml Balance 150 ml 492 ml 1053 ml Intake Oral 150 ml 0 ml 3139 ml IV Total 492 ml 3989 ml Output Urine Total 6075 ml # Voids 3 1 16 # Bowel Movements 4 Exam Constitutional: Alert, oriented x3. Conversive and cooperative. Frail appearing Head: normocephalic and atraumatic Eyes: pupils equal round and reactive. EOMI Heart: regular rate and rhythm. No murmurs. Trace bilateral edema Lungs: Diminished breath sounds. Wheezes throughout. No rales or rhonchi ABD: Soft and nontender. bowel sounds present throughout. Skin: Warm, pale, no rashes Neuro: CN II-XI intact, no focal deficits. Psych: appropriate mood and affect. Confused at times, but comes around during conversation indicating she understands what is going on around her. IVs and Medications Medications Reviewed: Medications were reviewed in detail Lab and Diagnostics Item Value Date Time Red Blood Count 4.66 mil/mm3 03/10/17234 Mean Corpuscular Volume 90.6 fL 03/10/17234 Mean Corpuscular Hemoglobin 30.9 pg 03/10/17234 Mean Corpuscular Hemoglobin Concent 34.1 % 03/10/17234 Red Cell Distribution Width 13.4 % 03/10/17234 Platelet Count 247 katalina/L 03/10/17234 Neutrophils (%) (Auto) 70.0 % 03/10/17 023 Lymphocytes (%) (Auto) 19.9 % 03/10/17 023 Monocytes (%) (Auto) 8.6 % 03/10/17 023 Eosinophils (%) (Auto) 0.2 % 03/10/17 023 Basophils (%) (Auto) 0.2 % 03/10/17234 Result Diagram: 03/10/1723403/09/17 0738 Microbiology Respiratory PCR negative Blood cultures negative after five days. X-Rays, CTs and MRIs X-RAY CHEST ONE VIEW, PORTABLE IMPRESSION: 1. Pulmonary emphysema. 2. Apparent vascular shunting to the upper lobes could reflect elevated pulmonary venous pressure but indeterminate. 3. Scar or atelectasis along the left major fissure is unchanged. 4. Increased density at the left base medially could represent a new area of pneumonia Dictated by: Jeffry Xiong M.D. on 03/03/2017 at 13:15 CT ANGIO CHEST PULMONARY EMBOLISM IMPRESSION: 1. No acute process. No pulmonary embolus. 2. Coronary artery disease. 3. Emphysema. 4. Bilateral lung nodules as described above; followup is recommended as below. 5. Presumed subpleural scarring within the left upper lobe laterally. Fleischner Society criteria for SOLID lung nodule followup. Nodule size (mm)Low-risk patientHigh-risk patient<6 (single or multiple)No routine followup.Optional CT at 12 months. 6-8 (single or multiple)CT at 6-12 months, then optional CT at 18-24 mo.CT at 6-12 months, then CT at 18-24 months. >8 (single)CT, PET-CT, or biopsy at 3 months. Same as for low-risk pts. >8 (multiple)CT at 3-6 months, then optional CT at 18-24 mo.CT at 3-6 months, then CT at 18-24 months. Recommendations do not apply to lung cancer screening, patients with immunosuppression, or patients with known primary cancer. Dictated by: Dillon Olea M.D. on 03/03/2017 at 17:24 12-lead ECG No changes from previous study on 03/03. Cardiac Echo Impressions Interpretation Summary The left ventricle is normal in size. The ejection fraction is estimated to be 65-70%. The right ventricle is normal in size and function. There is mild to moderate tricuspid regurgitation. Compared to the prior echo exam, there has been an increase in TR severity. The right ventricular systolic pressure is estimated at 36 mmHg assuming a right atrial pressure of 8 mm Hg. Compared to the prior echo exam, there has been an increase in the severity of pulmonary hypertension. Assessment & Plan Sandra Briggs is a 71-year-old woman with past medical history significant for COPD and is dependent on Trilogy, bipolar disorder , and MAURICE who presented to the [facility] emergency department due to worsening shortness of breath. Patient is being treated for exacerbation of end stage COPD. Acute on chronic hypoxemic hypercarbic respiratory failure secondary to severe COPD exacerbation, present on admission. Improving - Patient has severe COPD at baseline and was put on maximum medical intervention and started on Triology by Dr. Ryan as an outpatient - Likely end stage COPD as Infectious markers negative (PCR, blood cultures), PE studies negative - Palliative team and Hospice international sales representative have spoken with patient today. Hospice will not have any openings until Thursday, and SNF will not accept patient until fully admitted by Hospice. We will await any early openings for Hospice, but continue care as planned until Thursday. - Titrate oxygen to 88-95%. Keep patient on Trilogy while in hospital as this is most comfortable for her. - Dr. Ryan with pulmonology following - Azithromycin 500mg 250ml/hr - Decrease Solu-Medrol from 125mg IV TID to 125mg IV daily - Contine Atrovent, Xopenex, flonase Encephalopathy (resolved) -Patient's altered mental status has improved significantly with use of Trilogy -Continue to use the Trilogy at night and when necessary throughout the day -The patient has decided that she would like to be discharged to a SNF and most likely would like to be discharged on hospice. The patient's mental status has returned to her baseline and she is now able to make this decision. The patient will have a discussion with hospice later this morning. Sinus tachycardia, present on admission. Acute. Resolved. - Likely due to hypoxia as infectious markers are unremarkable - Thyroid markers with low TSH, normal T4 - Continue Metoprolol 25 mg mg bid - Continue Xopenex and Atrovent Chest Pain. Acute. Resolved -Troponin 0.01 -EKG showed no acute changes from 03/03 study - Chest pain likely secondary respiratory muscle deconditioning and fatigue after being off of high flow oxygen throughout the night. Will monitor. Leukocytosis - WBC 11.7 today with normal neutrophil count. (possibly increased from steroids vs. infection) - This is currently improving and trending down no further need for CBCs at this time Chronic issues, present on admission, stable: Bipolar disorder -Continue home medications Chronic pain -Continue home pain medications MAURICE - Continue BiPAP/Triology use as above CODE STATUS: DNR/DNI Acetaminophen for mild pain when necessary. Bowel regimen Senna and MiraLAX scheduled and PRN. Zofran when necessary for nausea and vomiting. SubQ heparin held for now. SCDs in place. Social: She reports DOPA is in fact Mr. 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 He owns a [employer] business. Disposition: Patient will likely be discharged Thursday to SNF on Hospice. We are awaiting availability from the Hospice team and SNF will not accept patient until she has been admitted on Hospice. She expressed desire to transition to hospice but until she is able to converse or her DPOA paperwork is acquired this conversation will be postponed. VTE Prophylaxis: Sub-Q Heparin (Unfractionated) VTE Mechanical Devices: Venous Foot Pump Resuscitation Status: DNR/DNI:Do Not Resuscitate/Intubate Attending Statement The patient was seen and examined together with Dr. Pradhan on 03/10/17 and I have added additional information to the note above. Puneet Pradhan DO Mar 10, 2017 18:16 Melinda Maldonado DO Mar 12, 2017 18:09
--- NOTE | 2017-03-10 22:13 | NUR ---
Refusal of Care At HS, when asked if patient was agreeable to take scheduled nighttime medications, patient stated "No, I don't want them."; subsequently refused having vitals taken, and when asked if there were any interventions she'd consent to, patient stated "No. I don't want anything. Just a blanket."
[2017-03-11 03:01] VITALS: BP 123/93; PULSE 94; RESP 20; O2SAT 95
[2017-03-11 03:19] VITALS: BP 130/82; PULSE 92; RESP 18; O2SAT 95
[2017-03-11] MEDS: HYDROcodone-APAP 7.5-325 mg Tablet PO PRN (05:26)
--- NOTE | 2017-03-11 05:43 | NUR ---
Constipation At approx. 0400 this AM; pt reported feeling significantly constipated and very uncomfortable; bowel tones present, but no bowel movement since the per the chart and patient report. Pt abdomen distended but soft, slightly tender to palpation. paged, one time order for fleets enema given; administered to patient. No bowel movement yet at this time, but pt passing gas.
--- NOTE | 2017-03-11 06:14 | PCM.PNMED ---
Subjective Date of Service Mar 11, 2017 Subjective Nursing reports patient refused nighttime medications and refused to have vitals checked. C/o constipation. Has had no BM since 03/04, but has reported passing flatus. Exam Vital Signs Vital Sign - Last Date Time Temp Pulse Resp B/P Pulse Ox O2 Delivery O2 Flow Rate FiO2 03/11/17 03:54 Supplement Oxygen 03/11/17 03:19 36.8 92 18 130/82 95 1.00 03/08/17 22:44 21 Intake and Output 03/10/17 03/10/17 03/11/17 Cumulative From/Thru 15:00 23:00 07:00 03/03/17 11:37 - 03/11/17 06:09 Intake Total 120 ml 553 ml 7801 ml Output Total 6075 ml Balance 120 ml 553 ml 1726 ml Intake Oral 120 ml 100 ml 3359 ml IV Total 453 ml 4442 ml Output Urine Total 6075 ml # Voids 2 2 20 # Bowel Movements 0 4 Lab and Diagnostics Result Diagram: 03/10/17 0235 03/09/17 0738 Microbiology Respiratory PCR negative Blood cultures negative after five days. X-Rays, CTs and MRIs X-RAY CHEST ONE VIEW, PORTABLE IMPRESSION: 1. Pulmonary emphysema. 2. Apparent vascular shunting to the upper lobes could reflect elevated pulmonary venous pressure but indeterminate. 3. Scar or atelectasis along the left major fissure is unchanged. 4. Increased density at the left base medially could represent a new area of pneumonia Dictated by: Jeffry Xiong M.D. on 03/03/2017 at 13:15 CT ANGIO CHEST PULMONARY EMBOLISM IMPRESSION: 1. No acute process. No pulmonary embolus. 2. Coronary artery disease. 3. Emphysema. 4. Bilateral lung nodules as described above; followup is recommended as below. 5. Presumed subpleural scarring within the left upper lobe laterally. Fleischner Society criteria for SOLID lung nodule followup. Nodule size (mm)Low-risk patientHigh-risk patient<6 (single or multiple)No routine followup.Optional CT at 12 months. 6-8 (single or multiple)CT at 6-12 months, then optional CT at 18-24 mo.CT at 6-12 months, then CT at 18-24 months. >8 (single)CT, PET-CT, or biopsy at 3 months. Same as for low-risk pts. >8 (multiple)CT at 3-6 months, then optional CT at 18-24 mo.CT at 3-6 months, then CT at 18-24 months. Recommendations do not apply to lung cancer screening, patients with immunosuppression, or patients with known primary cancer. Dictated by: Dillon Olea M.D. on 03/03/2017 at 17:24 12-lead ECG No changes from previous study on 03/03. Cardiac Echo Impressions Interpretation Summary The left ventricle is normal in size. The ejection fraction is estimated to be 65-70%. The right ventricle is normal in size and function. There is mild to moderate tricuspid regurgitation. Compared to the prior echo exam, there has been an increase in TR severity. The right ventricular systolic pressure is estimated at 36 mmHg assuming a right atrial pressure of 8 mm Hg. Compared to the prior echo exam, there has been an increase in the severity of pulmonary hypertension. Assessment & Plan Sandra Briggs is a 71-year-old woman with past medical history significant for COPD and is dependent on Trilogy, bipolar disorder , and MAURICE who presented to the [facility] emergency department due to worsening shortness of breath. Patient is being treated for exacerbation of end stage COPD. Acute on chronic hypoxemic hypercarbic respiratory failure secondary to severe COPD exacerbation, present on admission. Improving - Patient has severe COPD at baseline and was put on maximum medical intervention and started on Triology by Dr. Ryan as an outpatient - Likely end stage COPD as Infectious markers negative (PCR, blood cultures), PE studies negative - Palliative team and Hospice manufacturer's service representative have spoken with patient today. Hospice will not have any openings until Thursday, and SNF will not accept patient until fully admitted by Hospice. We will await any early openings for Hospice, but continue care as planned until Thursday. - Titrate oxygen to 88-95%. Keep patient on Trilogy while in hospital as this is most comfortable for her. - Dr. Ryan with pulmonology following - Azithromycin 500mg 250ml/hr - Decrease Solu-Medrol from 125mg IV TID to 125mg IV daily - Contine Atrovent, Xopenex, flonase Sinus tachycardia, present on admission. Acute. Resolved. - Likely due to hypoxia as infectious markers are unremarkable - Thyroid markers with low TSH, normal T4 - Continue Metoprolol 25 mg mg bid - Continue Xopenex and Atrovent Chest Pain. Acute. Resolved -Troponin 0.01 -EKG showed no acute changes from 03/03 study - Chest pain likely secondary respiratory muscle deconditioning and fatigue after being off of high flow oxygen throughout the night. Will monitor. Leukocytosis - WBC 15 today with normal neutrophil count. (possibly increased from steroids vs. infection) - Repeat CBC tomorrow morning Chronic issues, present on admission, stable: Bipolar disorder -Continue home medications Chronic pain -Continue home pain medications MAURICE - Continue BiPAP/Triology use as above CODE STATUS: DNR/DNI Acetaminophen for mild pain when necessary. Bowel regimen Senna and MiraLAX scheduled and PRN. Zofran when necessary for nausea and vomiting. SubQ heparin held for now. SCDs in place. Social: She reports DOPA is in fact Mr. 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 He owns a [employer] [place] business. Disposition: Patient will likely be discharged Thursday to SNF on Hospice. We are awaiting availability from the Hospice team and SNF will not accept patient until she has been admitted on Hospice. She expressed desire to transition to hospice but until she is able to converse or her DPOA paperwork is acquired this conversation will be postponed. VTE Prophylaxis: Sub-Q Heparin (Unfractionated) VTE Mechanical Devices: Venous Foot Pump Resuscitation Status: DNR/DNI:Do Not Resuscitate/Intubate Punete Pradhan DO Mar 11, 2017 06:14
[2017-03-11] MEDS: Ipratropium 0.02% 0.5 mg/2.5 mL Inhalation Solution NEB SCH ×2 (07:39→11:51)
[2017-03-11] MEDS: Levalbuterol 1.25 mg/0.5mL Inhalation Solution NEB SCH ×2 (07:39→11:52)
[2017-03-11 07:40] VITALS: PULSE 95; RESP 18; O2SAT 95
[2017-03-11 07:56] VITALS: BP 130/80; PULSE 103; RESP 20; O2SAT 93
[2017-03-11] MEDS: MethylprednisoLONE Sodium Succinate 62.5 mg/mL 2 mL Inj IVPUSH SCH (08:37)
[2017-03-11] MEDS: Fluticasone 0.05% 15 Spray/2 Gm 16 Gm Nasal Spray NASAL SCH (08:38)
[2017-03-11] MEDS: Nystatin 100,000 Unit/mL 5 mL Suspension PO SCH ×2 (08:38→12:37)
[2017-03-11] MEDS: OXcarbazepine 300 mg Tablet PO SCH (08:39)
--- NOTE | 2017-03-11 09:40 | PCM.PALLBR ---
Palliative Care Recommendation 71-year-old female with severe COPD (essentially bedridden with severe exertional dyspnea recently) admitted with exacerbation. Past history also significant for bipolar disease, significant anxiety, severe DJD with chronic pain. Palliative medicine consulted to assist patient in determination of goals of care and symptom management. Summary of palliative recommendations: -Symptom management (Pain/other)- Pall Care team ordered MS IR 5 mg PO Q 4 hr prn dyspnea/air hunger. However, she has not taken any doses. She did accept one dose HC/APAP (7.5/325) last night. She does not appear to be SOB and denies pain on interview today. Hospice has reviewed her case and agrees with enrolling her, though would prefer transitioning from Trilogy device to BiPAP with suctioning prn when they assume care. She is aware of this and has agreed. -DPOA/Advanced Directives/POLST: She has said that her neighbor/landlord Adrian Jeronimo is to be her POA and that she has an hazardous waste management specialist downtown who is drawing up paperwork at this time. She does not want her sons involved at all. She is DO NOT RESUSCITATE/DO NOT INTUBATE. She will be transitioning to hosp[facility] care [id number]. When asked if she would want to return to the hospital for future care, she replied "probably not". New POLST completed on 03/[address] Ly consistent with hospice/comfort care. Original and 2 copies in her hospital chart and one copy to the palliative office -Family/emotional support: limited, and becoming more so as her disability has progressed. She has 3 sons living out of town from whom she is estranged and she does not want them involved. -Spiritual support: hospital building inspector following Patient Goals: 1. Patient wants to be told the truth about her illness, even if it is unpleasant. 2. Patient would like to be told prognosis when it can be predicted, to better guide treatment decisions. 3. Patient would choose quality of life over quantity of life, and defines quality as being able to breathe comfortably Additional Medical Diagnoses with primary management by Hospitalist team include : #Acute on chronic hypoxemic respiratory failure secondary to severe COPD possible exacerbation, present on admission, active # Sinus tachycardia #Bipolar disorder #Chronic pain Problems: End of Life Preferences DO NOT RESUSCITATE/DO NOT INTUBATE Goals of Care Comfort and stabilization of respiratory status Disposition SNF with hospice Resuscitation Status Resuscitation Status: DNR/DNI:Do Not Resuscitate/Intubate POLST Updates/Changes Previous POLST?: No POLST Last Review Date: Mar 10, 2017 Antibiotics: Determine Use or Limitations Artificially Admin Nutrition: No Artifical Nutrition by Tube POLST Discussed with: Patient POLST Review Outcome: New Form Completed Total time 25 minutes; >50% face to face with patient and/or family, providing counselling regarding plans and recommendations, and in care coordination with his/her medical teams. Palliative Brief Note Date of Service Mar 11, [address] Spear rounded this morning to evaluate the patient and prior to visiting, reviewed her status with her bedside nurse and her recent events/documentation in the EMR. When I arrived early in the day, she was awake, answered questions appropriately. She was wearing nasal cannula oxygen. She signed up with hospice 03/10 and case management is working on SNF placement. She has no complaints. On exam, frail, elderly woman lying in bed. HEENT: thin hair, normocephalic/atraumatic, PERRL, EOMI. Neck: no JVD. Lungs: decreased breath sounds, no crackles or wheezes. Heart: rrr. Abdomen: soft, nontender. Ext: no pitting edema. Skin: pale, warm and dry Monet Spear MD Mar 11, 2017 09:40 Monet Spear MD Mar 11, 2017 09:40
--- NOTE | 2017-03-11 10:20 | PCM.DIMED ---
Puneet Pradhan DO 03/11/17 1020: Discharge Instructions Date of Service Mar 11, 2017 Dates of Hospitalization Mar 03, 2017 at 19:53 Discharge Diagnosis Discharge Diagnosis Acute on chronic hypoxemic hypercarbic respiratory failure secondary to severe COPD exacerbation, present on admission. Improving Sinus tachycardia, present on admission. Acute. Resolved. Chest Pain. Acute. Resolved Leukocytosis Bipolar disorder Chronic pain MAURICE Medication Instructions Additional med instructions Please take Miralax powder daily. Take Solumedrol 20mg tablets in the following doses: Take 4 pills a day for 7 days for week 1. Take 3 pills a day for 7 days for week 2. Take 2 pills a day for 7 days for week 3. Take 1 pill a day for 7 days for week. 4. Diet Discharge Diet: No restrictions Activity Discharge Activity: Limited until seen by PCP Call your provider Call your provider for: Fever or Chills, Shortness of breath, Bleeding, Chest pain, Vomitting, Excessive diarrhea, Weakness (unilateral) Patient Instructions Follow-up plan You will be discharged to [facility] with a scheduled Hospice visit on Thursday (03/14). Follow-up Provider: Hope Mendes MD Follow-up with PCP in: 1 week Melinda Maldonado DO 03/11/17 1639: Discharge Instructions Attending's Statement The patient was seen and examined together with Dr. Pradhan on 03/10/17 and I agree with the history, exam and plan as outlined in the note above. Puneet Pradhan DO Mar 11, 2017 10:20 Melinda Maldonado DO Mar 11, 2017 16:39
--- NOTE | 2017-03-11 10:39 | PCM.PROC ---
Procedure Note Date of Service: Mar 11, 2017 Pre Procedure Diagnosis: Constipation Procedure: Procedure: Osteopathic Manipulative Treatment Subjective: Patient complains of constipation with last documented BM 1 week ago which was small volume and hard. Abdomen is distended but compressible. The patient states that she has tried miralax and enemas but this is not been successful at relieving her constipation. Risks and benefits of OMT were explained to the patient and verbal consent obtained. Osteopathic Structural Exam: Abdomen: Distended abdomen with palpable soft tissue, facial, and omental restriction Ribs: paraspinal hypertonic musculature BL Pelvis: Left anterior innominate Sacrum: BL L>R sacroilliac joint restriction Lower extremities:Left hamstring hypertonicity Patient responded well to treatment. Osteopathic treatment modalities used: Myofascial release, Muscle Energy, BLT, rib raising, and soft tissue technique Provider and Rotational Moulding Operator: Dr. Maldonado, Dr. Snyder, Medical student Vicky Jay Post Procedure Plan: Patient was instructed to vigorously hydrate and continue to take her bowel regimen medications Attending Statement The patient was seen and examined together with Dr. Snyder on 03/11/17 and I have added additional information to the note above. Melinda Maldonado DO Mar 11, 2017 10:39 Reddy Snyder DO Mar 11, 2017 18:10
[2017-03-11] MEDS ORDERED: POLY17PO6 PO (10:40)
[2017-03-11] MEDS ORDERED: MORP15TA PO (10:40)
[2017-03-11 11:54] VITALS: PULSE 103; RESP 20; O2SAT 96
--- NOTE | 2017-03-11 13:14 | PCM.DC.MED ---
Discharge Summary Date of Service Mar 11, 2017 Dates of Hospitalization Date of Hospital Admission Mar 03, 2017 at 19:53 Date of Discharge: Mar 11, 2017 Providers: Admitting Physician: Alec Velasquez MD Primary Care Physician: Sandra Talavera MD Attending Physician: Melinda Maldonado DO Diagnosis at Time of Discharge Diagnosis at Time of Discharge Acute on chronic hypoxemic hypercarbic respiratory failure secondary to severe COPD exacerbation Sinus tachycardia Chest Pain. Leukocytosis Bipolar disorder Chronic pain MAURICE Consultations Pulmonology - Dr. Shelby Person Palliative Care - Dr. Aliyah Person Procedures XRay, CTs & MRIs X-RAY CHEST ONE VIEW, PORTABLE IMPRESSION: 1. Pulmonary emphysema. 2. Apparent vascular shunting to the upper lobes could reflect elevated pulmonary venous pressure but indeterminate. 3. Scar or atelectasis along the left major fissure is unchanged. 4. Increased density at the left base medially could represent a new area of pneumonia Dictated by: Jeffry Xiong M.D. on 03/03/2017 at 13:15 CT ANGIO CHEST PULMONARY EMBOLISM IMPRESSION: 1. No acute process. No pulmonary embolus. 2. Coronary artery disease. 3. Emphysema. 4. Bilateral lung nodules as described above; followup is recommended as below. 5. Presumed subpleural scarring within the left upper lobe laterally. Fleischner Society criteria for SOLID lung nodule followup. Nodule size (mm)Low-risk patientHigh-risk patient<6 (single or multiple)No routine followup.Optional CT at 12 months. 6-8 (single or multiple)CT at 6-12 months, then optional CT at 18-24 mo.CT at 6-12 months, then CT at 18-24 months. >8 (single)CT, PET-CT, or biopsy at 3 months. Same as for low-risk pts. >8 (multiple)CT at 3-6 months, then optional CT at 18-24 mo.CT at 3-6 months, then CT at 18-24 months. Recommendations do not apply to lung cancer screening, patients with immunosuppression, or patients with known primary cancer. Dictated by: Dillon Olea M.D. on 03/03/2017 at 17:24 Cardiac Echo Impression Echocardiogram Report Interpretation Summary The left ventricle is normal in size. The ejection fraction is estimated to be 65-70%. The right ventricle is normal in size and function. There is mild to moderate tricuspid regurgitation. Compared to the prior echo exam, there has been an increase in TR severity. The right ventricular systolic pressure is estimated at 36 mmHg assuming a right atrial pressure of 8 mm Hg. Compared to the prior echo exam, there has been an increase in the severity of pulmonary hypertension. Reading Physician:PM Brief History Sandra Briggs is a 71-year-old woman with past medical history significant for COPD and is dependent on Trilogy, bipolar disorder , and MAURICE who presented to the [facility] emergency department due to worsening shortness of breath. Patient is being treated for exacerbation of end stage COPD. Patient had continued decline in respiratory ability throughout the first two days of her stay and Levaquin for atypical pneumonia was started. Patient had increased oxygen needs requiring Pulmonology, Dr. Ryan, consulted for further pulmonary control and Solu-Medrol was increased to 125 mg QD. Patients respiratory status improved, and she was placed on 2L NC with intermittent BiPap. On hospital day 4, patient was transferred to [facility] [place] [facility] [place] increased oxygen demand, somnolence, and decreased responsiveness. She was placed back on Trilogy therapy, and improved within the next 24 hours. A palliative consult was made, and Dr. Ly visited patient to evaluate her goals of care and her wishes throughout this course of her disease. Discussion was made on whether the patient would like to speak with Hospice, and given her spouse recently (in 2015) on Hospice, she agreed. Patient was agreeable to Hospice care; however, due to scheduling conflicts with the nursing staff of Hospice, was not able to be admitted onto their service until . Further placement issues with SNF extended the patients stay a few more days. Plan to discharge to SNF with transition to Hospice care on 03/13. Comfort measures are in place as per Palliative recommendations. A Solu-Medrol taper is set up for incremental dosing reductions for the next four weeks. Hospital Course Sandra Briggs is a 71-year-old woman with past medical history significant for COPD and is dependent on Trilogy, bipolar disorder , and MAURICE who presented to the [facility] emergency department due to worsening shortness of breath. Patient was treated for exacerbation of end stage COPD. Acute on chronic hypoxemic hypercarbic respiratory failure secondary to severe COPD exacerbation. Improved. - Patient has severe COPD at baseline and was put on maximum medical intervention and transitioned to Bipap per Hospice requirements. - Likely end stage COPD as Infectious markers negative (PCR, blood cultures), PE studies negative - Palliative team and Hospice associate financial representative have spoken with patient. Hospice will not have any openings until 03/13. - Titrated oxygen to 88-95%. Kept patient on Trilogy while in hospital as this is most comfortable for her. - Dr. Ryan with pulmonology following - Decreased Solu-Medrol from 125mg IV TID to 80mg PO with plan to taper. - Continued Atrovent, Xopenex, flonase Sinus tachycardia. Resolved. - Likely due to hypoxia as infectious markers are unremarkable - Thyroid markers with low TSH, normal T4 - Continue Metoprolol 25 mg mg bid - Continue Xopenex and Atrovent Chest Pain. Resolved. -Troponin 0.01 -EKG showed no acute changes from 03/03 study - Chest pain likely secondary respiratory muscle deconditioning and fatigue after being off of high flow oxygen throughout the night. Leukocytosis. Resolved. -Likely secondary to steroid use. Bipolar disorder -Continued home medications Chronic pain -Continued home pain medications MAURICE - Continued BiPAPuse as above Hospice -Patient is being discharged to [facility] ([facility]) and will be transitioned to hospice care on 03/13/2017. Exam Vital Signs (Last) Date Time Temp Pulse Resp B/P Pulse Ox O2 Delivery O2 Flow Rate FiO2 03/11/17 11:54 103 20 96 Nasal Cannula 1.00 03/11/17 07:56 36.7 130/80 03/08/17 22:44 21 Exam Constitutional: Frail, Alert, Awake. No acute Distress Head: Normocephalic and Atraumatic Eyes: Pupils equal, round, and reactive. EOMI Heart: Regular rate and rhythm. No peripheral edema. Lungs: clear to auscultation. Diffuse wheeze throughout. No rales or rhonchi. ABD. Soft. mild tenderness. Bowel sounds throughout. Musculoskeletal: Moves all four extremities. 5/5 bilateral animation director strength. Neuro: CN II-XII intact. No focal deficits. Psych: Appropriate mood and affect. Test 03/03/17 13:09 03/03/17 22:45 03/05/17 12:05 03/09/17 07:38 D-Dimer 1.11mg/L FEU (<0.50) Urine Color Yellow (YELLOW) Urine Appearance Clear (CLEAR,HAZY) Urine pH 6.4 (5.0-8.0) Urine Specific [place] >1.050 (1.003-1.035) Urine Protein Negativemg/dL (NEG,TRACE) Urine Glucose (UA) Negativemg/dL (NEGATIVE) Urine Ketones 15mg/dL (NEGATIVE) Urine Occult Blood Trace (NEGATIVE) Urine Nitrite Negative (NEGATIVE) Urine Bilirubin Negative (NEGATIVE) Urine Urobilinogen Normalmg/dL (NORMAL) Urine Leukocyte Esterase Negative (NEGATIVE) Urine RBC 3-10/hpf (0-2) Urine WBC 0-5/hpf (0-5) Urine Epithelial Cells Occasional/hpf (NONE-MOD) Urine Crystals None seen (NONE SEEN) Urine Bacteria None/hpf (NONE-FEW) Urine Hyaline Casts None/lpf (NONE) Urine Granular Casts None seen (NONE SEEN) Urine Waxy Casts None seen (NONE SEEN) Urine Red Blood Cell Casts None seen (NONE SEEN) Urine White Blood Cell Casts None seen (NONE SEEN) Urine Mucus None seen (None Seen) Urine Trichomonas None seen (NONE SEEN) Urine Yeast None (NONE SEEN) Urinalysis Comment None Urine Culture Reflexed Not indicated Urine Legionella pneumophilia Ag Negative (Negative) Lactic Acid Level 3.0mmol/L (0.4-2.0) Phosphorus Level 2.9mg/dL (2.5-4.9) Magnesium Level 1.6mg/dL (1.6-2.6) Pro-B-Type Natriuretic Peptide 522.7pg/mL (0-301) Procalcitonin 0.03ng/mL (0.00-0.08) Thyroid Stimulating Hormone (TSH) 0.375uIU/mL (0.450-4.500) Free Thyroxine 1.13ng/dL (0.82-1.77) Sodium Level 133mEq/L (134-144) Potassium Level 3.5mEq/L (3.5-5.2) Chloride Level 95mEq/L (97-108) Carbon Dioxide Level 23mmol/L (18-29) Blood Urea Nitrogen 29mg/dL (8-27) Creatinine 0.58mg/dL (0.57-1.00) Estimat Glomerular Filtration Rate 146mL/min (>59) Glucose Level 126mg/dL (60-99) Calcium Level 9.0mg/dL (8.5-10.1) Total Bilirubin 0.2mg/dL (0.0-1.2) Aspartate Amino Transf (AST/SGOT) 17U/L (0-50) Alanine Aminotransferase (ALT/SGPT) 31U/L (0-32) Alkaline Phosphatase 102U/L (25-165) Troponin T 0.010ug/L (0.0-0.011) Total Protein 7.3g/dL (6.4-8.4) Albumin 4.0g/dL (3.4-5.0) Test 03/10/17 02:35 White Blood Count 11.7th/mm3 (3.8-10.1) Red Blood Count 4.66mil/mm3 (3.90-5.20) Hemoglobin 14.4g/dL (12.0-15.6) Hematocrit 42.2% (35.0-46.0) Mean Corpuscular Volume 90.6fL (81-100) Mean Corpuscular Hemoglobin 30.9pg (27.0-35.0) Mean Corpuscular Hemoglobin Concent 34.1% (32.0-37.0) Red Cell Distribution Width 13.4% (12.3-15.4) Platelet Count 247bil/L (150-400) Neutrophils (%) (Auto) 70.0% (40-74) Lymphocytes (%) (Auto) 19.9% (14-46) Monocytes (%) (Auto) 8.6% (4-12) Eosinophils (%) (Auto) 0.2% (0-5) Basophils (%) (Auto) 0.2% (0-3) Microbiology Results Respiratory PCR negative Blood cultures negative after five days. Discharge Medications Discharge Medications Budesonide/Formoterol 160-4.5 mcg Inh (Symbicort 160-4.5 mcg Inh) 120 Puff Inhaler 2 PUFFS INH BID (Reported) Bupropion (Bupropion) 75 Mg Tablet 75 MG PO BID (Reported) Cetirizine HCl (Zyrtec) 10 Mg Capsule 10 MG PO DAILY (Reported) Fluticasone Propionate (Flovent HFA 220 mcg) 12 Gm Aer.w.adap 2 PUFFS IH BID ( Reported) Fluticasone/Vilanterol (Breo Ellipta 200-25 Mcg INH) 200 Mcg-25 Mcg/Dose Blst.w.dev 1 PUFF INH DAILY (Reported) Furosemide (Furosemide) 20 Mg Tab 20-40 MG PO DAILY (Reported) Lactose-Reduced Food (Ensure Active Light) 237 Ml Liquid 237 ML PO BID (Reported ) For Underweight Status Methylprednisolone Sod Succ/Pf (Solu-Medrol 125 mg Vial) 125 Mg/2 Ml Vial 20 MG IVPUSH DAILY Take four pills/day for the first week. Take three pills/day for 7 days for the second week. Take two pills/day for 7 days for the thrid week. Take one pill /day for 7 days for the fourth week. Prescribed by: Kimberley ZARAGOZA Nystatin (Nystatin) 100,000 Unit/1 Ml Oral.susp 1 TSP PO QID (Reported) Olanzapine (Zyprexa) 5 Mg Tablet 5 MG PO MORNING (Reported) Olanzapine (Zyprexa) 20 Mg Tablet 20 MG PO HS (Reported) Omeprazole (Omeprazole) 20 Mg Capsule.dr 20 MG PO BID (Reported) Oxcarbazepine (Oxcarbazepine) 300 Mg Tablet 600 MG PO MORNING (Reported) Oxcarbazepine (Oxcarbazepine) 300 Mg Tablet 1,200 MG PO HS (Reported) Polyethylene Glycol 3350 (Miralax) 17 Gm Powd.pack 17 GM PO DAILY Prescribed by: Kimberley ZARAGOZA Potassium Chloride (Potassium Chloride) 10 Meq Capsule.er 10 MEQ PO NOON ( Reported) TAKE WITH FOOD Ranitidine (Ranitidine) 300 Mg Tablet 300 MG PO HS (Reported) Temazepam (Temazepam) 15 Mg Capsule 15 MG PO HS (Reported) Tiotropium [facility] (Spiriva) 18 Mcg Cap.w.dev 18 MCG IH DAILY (Reported) Topiramate (Topiramate) 25 Mg Tablet 25 MG PO BID (Reported) As needed Acyclovir (Acyclovir) 800 Mg Tab 800 MG PO BID PRN PRN outbreak (Reported) Hydrocodone-Acetaminophen 7.5-325 mg (Hydrocodone-Acetaminophen 7.5-325 mg) 1 Each Tablet 1 TAB PO Q6H PRN PRN For Pain (Reported) May take 1 extra tablet 4 days a month Ipratropium/Albuterol Sulfate (Iprat-Albut 0.5-3(2.5) mg/3 mL Inhalant Soln) 3 Ml Ampul.neb 1 NEB IH QID PRN PRN For Shortness of Breath (Reported) Lorazepam (Ativan) 0.5 Mg Tablet 0.25-0.5 MG PO BID PRN PRN For Anxiety ( Reported) Methocarbamol (Methocarbamol) 500 Mg Tablet 500 MG PO QID PRN PRN muscle spasms (Reported) Morphine Sulfate (Morphine Sulfate) 15 Mg Tablet 5 MG PO Q4 PRN PRN DYSPNEA Prescribed by: Kimberley ZARAGOZA Polyethylene Glycol 3350 ([id number]) 17 Gram/Dose Powder 1 DOSE PO DAILY PRN PRN For Constipation (Reported) Daily X3 days, then as needed Additional med instructions Please take Miralax powder daily. Followup Plan Disposition: [facility] Follow-up plan You will be discharged to [facility] with a scheduled Hospice visit on Thursday (03/14). Discharge Diet: No restrictions Discharge Activity: Limited until seen by PCP Follow-up Provider: Hope Mendes MD Follow-up with PCP in: 1 week Time spent Time spent planning and coordinating discharge greater than 35 minutes. Attending Statement The patient was seen and examined together with Dr. Pradhan on 03/11/17 and I have added additional information to the note above. copies to: Hope Mendes MD, Anthony P DO Mar 11, 2017 13:14 Melinda Maldonado DO Mar 13, 2017 15:27 Each Tablet 1 TAB PO Q6H PRN PRN For Pain (Reported) May take 1 extra tablet 4 days a month Ipratropium/Albuterol Sulfate (Iprat-Albut 0.5-3(2.5) mg/3 mL Inhalant Soln) 3 Ml Ampul.neb 1 NEB IH QID PRN PRN For Shortness of Breath (Reported) Lorazepam (Ativan) 0.5 Mg Tablet 0.25-0.5 MG PO BID PRN PRN For Anxiety ( Reported) Methocarbamol (Methocarbamol) 500 Mg Tablet 500 MG PO QID PRN PRN muscle spasms (Reported) Morphine Sulfate (Morphine Sulfate) 15 Mg Tablet 5 MG PO Q4 PRN PRN DYSPNEA Prescribed by: Kimberley ZARAGOZA Polyethylene Glycol 3350 ([id number]) 17 Gram/Dose Powder 1 DOSE PO DAILY PRN PRN For Constipation (Reported) Daily X3 days, then as needed Additional med instructions Please take Miralax powder daily. Followup Plan Follow-up plan You will be discharged to [facility] with a scheduled Hospice visit on Thursday (03/14). Discharge Diet: No restrictions Discharge Activity: Limited until seen by PCP Follow-up Provider: Hope Mendes MD Follow-up with PCP in: 1 week Puneet Pradhan DO Mar 11, 2017 13:14
[2017-03-11] MEDS ORDERED: METH125V12 IVPUSH (13:34)
--- NOTE | 2017-03-11 14:08 | NUR ---
Long Term Transfer: Arranged BLS via [facility] asked for a 1500 pickling operator and patient is going to [facility] and will be opening with Hospice. Updated SENIOR MARKETING ANALYST
--- NOTE | 2017-03-11 14:33 | NUR ---
Social Work Note: Initial Assessment/Discharge/Multidisciplinary Rounds Data& Assessment: Pt was discussed in AM round today, per MD pt is medically stable for transport and discharge to [facility] via ALS for continued care and Hospice to open Thursday at 9:00a.m. ALYSON met with pt at bedside to confirm discharge plan and assess for any unmet needs. Pt more alert and oriented this afternoon. ALYSON also spoke with pt DPOA Adrian Jeronimo ([phone]) and updated him on discharge plan. Per request, ALYSON also updated pt friend [place] ([phone]) who visits pt daily and plans to visit pt tomorrow at [facility]. Pt was updated that her friends were notified and up to date on plan. Pt appreciative. Sandra Briggs is a 71 year old female admitted on 03/03/2017 for dyspnea. Pt lived at home in [place] in a one level home and was independent with all ADL's prior to this hospitalization. Pt previously did not require any DME for ambulation and only required her Trilogy machine and oxygen through [place] (Respiratory Therapy notified). Pt has had a hx with Liudmila CAMARILLO RN and PT. Pt does not have SNF hx and does not have LTC insurance or veterans benefits. Pt has DPOA/AD paperwork completed. ALYSON requested a copy from pt DPOA--DPOA instructed to provide a copy to Hosp[facility]. Pt DPOA states he also has it filed in public records. Pt and pt friends/DPOA denies any other needs. All updated and agreeable to plan. No other discharge needs identified. Plan: Per pt is medically stable for transport and discharge to [facility] SNF via ALS for continued care and Hospice to open Thursday at 9:00a.m. Pt and pt friends/DPOA denies any other needs. All updated and agreeable to plan. No other discharge needs identified. DANIEL Sousa Addendum: 03/11/17 at 1439 by KATY WATTS SS Amended: Links added.
--- NOTE | 2017-03-11 15:34 | DRSVH ---
PROCEDURE: X-RAY KUB ([id number]) INDICATIONS: Constipation since 03/04 TECHNIQUE: One view of the abdomen acquired. COMPARISON: [facility], CR, XR KUB, 03/03/2017, 23:02. FINDINGS: Surgical changes and devices: None. Bowel: There is gaseous distention of the stomach, otherwise the gas pattern appears normal. No pneu matosis or bowel thickening. Soft tissues: No suspicious abdominal calcifications. Visualized solid organ contours appear normal in size. Bones: No suspicious bony lesions. IMPRESSION: Gaseous distention noted involving the stomach otherwise normal bowel gas pattern. Dictated by: Adeel Nye [facility] Interpreted: Yovany Pedroza MD on 03/11/2017 at 9:15 Approved by: Yovany Pedroza M.D. on 03/11/2017 at 15:31
--- NOTE | 2017-03-11 15:39 | NUR ---
Discharge Patient A&O x3 with intermittent confusion. VSS. Denies pain/discomfort. Discharged to [facility] with all personal belongings including home trilogy. Transported via [facility] transport, report given to fast food services manager. Report also given to [facility] RN.
== END 2017-03-11 15:12 | DRG 190 ==
LOC: SED 11:32 → MPC 19:53 → PCC 03-06 16:56
PROVIDERS: ADMIT Hospitalist; ATTEND Hospitalist
PROC: 4A033R1 Measurement of Arterial Saturation, Peripheral, Percutaneous Approach (ICD-10-PCS; 2017-03-03)
PROC: 5A09457 Assistance with Respiratory Ventilation, 24-96 Consecutive Hours, Continuous Positive Airway Pressure (ICD-10-PCS; principal; 2017-03-06)
DX: J44.1 Chronic obstructive pulmonary disease with (acute) exacerbation (principal); J96.22 Acute and chronic respiratory failure with hypercapnia; J96.21 Acute and chronic respiratory failure with hypoxia; E87.2 Acidosis; F31.9 Bipolar disorder, unspecified; E86.0 Dehydration; I27.2 Other secondary pulmonary hypertension; Z87.891 Personal history of nicotine dependence; G89.29 Other chronic pain; G47.33 Obstructive sleep apnea (adult) (pediatric); G47.00 Insomnia, unspecified; Z66 Do not resuscitate; R00.0 Tachycardia, unspecified